=== PATIENT | female | born 1980 | race Caucasian/White ===

== ENCOUNTER → 2016-04-26 | Outpatient (CLI) | payer OTHER ==
[~2016-04-26] MED LIST: ADV250INH INH; ALBU17IN2 INH; AVIANE PO; BACT800T5 PO; LEVO200T4 PO; LUTETAB PO; NAPR500T2 PO; NAPRPOW4 PO; NORCOTAB PO; PROVENTIL INHAL INH; SERT50TA PO; SERTRALINE PO; SYNTHROID PO; VITA50003 PO; VITAMIN D PO
== END ==
LOC: EDBD → M LAB 06:07
PROVIDERS: ATTEND Family Medicine
DX: J30.2 Other seasonal allergic rhinitis (principal); J30.81 Allergic rhinitis due to animal (cat) (dog) hair and dander; H10.43 Chronic follicular conjunctivitis; R05 Cough; T50.995A Adverse effect of other drugs, medicaments and biological substances, initial encounter; E28.2 Polycystic ovarian syndrome; E55.9 Vitamin D deficiency, unspecified

== ENCOUNTER → 2016-04-26 | Outpatient (CLI) | payer OTHER ==
[2016-04-26 07:38] LABS: COMPLEMENT C4 23.7 MG/DL (10-40); IMMUNOGLOBULIN E 52.4 IU/ML (<100)
[2016-04-30 14:15] LABS: ALPHA 1 ANTITRYPSIN 157 mg/dL (90-200); D001-IgE D pteronyssinus 6.66 kU/L (Class IV); E001-IgE Cat Epith/Dander 0.12 kU/L (Class 0/I); E005-IgE Dog Dander 0.58 kU/L (Class II); F002-IgE Milk 0.38 kU/L (Class I); F004-IgE Wheat 0.14 kU/L (Class 0/I); F013-IgE Peanut < 0.10 kU/L (Class 0); F014-IgE Soybean < 0.10 kU/L (Class 0); F026-IgE Pork < 0.10 kU/L (Class 0); F027-IgE Beef < 0.10 kU/L (Class 0); FX02-IgE Food Mix (Sea Foods) Negative (.); G002-IgE Bermuda Grass < 0.10 kU/L (Class 0); G008-IgE Kentucky Bluegrass < 0.10 kU/L (Class 0); M001-IgE Penicillium chrysogen < 0.10 kU/L (Class 0); M002 IgE Cladosporium herbaru < 0.10 kU/L (Class 0); M003 IgE Aspergillus fumigatu < 0.10 kU/L (Class 0); M006-IgE Alternaria alternata < 0.10 kU/L (Class 0); T001-IgE Maple/Box Elder < 0.10 kU/L (Class 0); T003-IgE Common Silver Birch < 0.10 kU/L (Class 0); T007-IgE Oak, White < 0.10 kU/L (Class 0); T008-IgE Elm, American < 0.10 kU/L (Class 0); T015-IgE Ash, White < 0.10 kU/L (Class 0); T041-IgE Hickory, White < 0.10 kU/L (Class 0); W001-IgE Ragweed, Short < 0.10 kU/L (Class 0); W009-IgE Plantain, English < 0.10 kU/L (Class 0); W014-IgE Pigweed, Rough < 0.10 kU/L (Class 0); W018-IgE Sheep Sorrel < 0.10 kU/L (Class 0)
== END ==
LOC: M LAB 06:10 → EDBD 06:10
PROVIDERS: ATTEND Allergy & Immunology
DX: E28.2 Polycystic ovarian syndrome (principal); E55.9 Vitamin D deficiency, unspecified

== ENCOUNTER → 2016-06-19 | Outpatient (REF) | payer OTHER | LOC: M LAB REF 11:37 | PROVIDERS: ATTEND Physician Assistant | DX: J02.9 Acute pharyngitis, unspecified (principal) ==

== ENCOUNTER → 2016-07-22 | Outpatient (CLI) | payer OTHER | LOC: M RAD 10:26 | PROVIDERS: ATTEND Internal Medicine Endocrinology, Diabetes & Metabolism | DX: Z85.850 Personal history of malignant neoplasm of thyroid (principal); Z53.9 Procedure and treatment not carried out, unspecified reason ==

== ENCOUNTER → 2016-08-03 | Outpatient (CLI) | payer OTHER ==
[2016-08-03 18:09] LABS: ALBUMIN 3.2 GM/DL (3.2-5.2); ALBUMIN/GLOBULIN RATIO 0.84 (1.00-1.93); ALKALINE PHOSPHATASE 125 U/L (45-117); ALT/SGPT 21 U/L (12-78); ANION GAP 10 MEQ/L (8-16); AST/SGOT 10 U/L (15-37); BILIRUBIN,TOTAL 0.3 MG/DL (0.2-1.0); BLOOD UREA NITROGEN 13 MG/DL (7-18); CALCIUM LEVEL 8.4 MG/DL (8.5-10.1); CARBON DIOXIDE LEVEL 23 MEQ/L (21-32); CHLORIDE LEVEL 104 MEQ/L (98-107); CREATININE FOR GFR 0.68 MG/DL (0.55-1.02); GLOMERULAR FILTRATION RATE > 60.0 (>60); GLUCOSE, FASTING 87 MG/DL (70-105); POTASSIUM SERUM 3.8 MEQ/L (3.5-5.1); SODIUM LEVEL 137 MEQ/L (136-145)
== END ==
LOC: M LAB 15:30
PROVIDERS: ATTEND Family Medicine
DX: E66.01 Morbid (severe) obesity due to excess calories (principal); E55.9 Vitamin D deficiency, unspecified; R06.00 Dyspnea, unspecified

== ENCOUNTER → 2016-12-06 | Outpatient (CLI) | payer OTHER ==
[~2016-12-06] MED LIST changes: -NAPR500T2 PO; +NAPR500T3 PO; +VITA1CAP40 PO; -VITA50003 PO
[2016-12-06 09:51] LABS: CONTROL LINE HCG INT CTR LINE PRESENT
[2016-12-06 10:02] LABS: ANION GAP 10 MEQ/L (8-16); BLOOD UREA NITROGEN 10 MG/DL (7-18); CALCIUM LEVEL 8.3 MG/DL (8.5-10.1); CARBON DIOXIDE LEVEL 23 MEQ/L (21-32); CHLORIDE LEVEL 107 MEQ/L (98-107); CREATININE FOR GFR 0.72 MG/DL (0.55-1.02); GLOMERULAR FILTRATION RATE > 60.0 (>60); GLUCOSE, FASTING 97 MG/DL (70-105); MAGNESIUM LEVEL 2.2 MG/DL (1.8-2.4); PHOSPHORUS LEVEL 3.6 MG/DL (2.5-4.9); POTASSIUM SERUM 4.4 MEQ/L (3.5-5.1); SODIUM LEVEL 140 MEQ/L (136-145)
== END ==
LOC: M LAB 08:00
PROVIDERS: ATTEND Nurse Practitioner Family
DX: Z98.84 Bariatric surgery status (principal)

== ENCOUNTER → 2017-02-24 | Outpatient (CLI) | payer OTHER ==
[2017-02-24 07:27] LABS: BASO # 0.1 10^3/uL (0.0-0.2); BASO % 0.9 % (0.0-1.0); EOS # 0.4 10^3/uL (0.0-0.50); EOS % 3.3 % (0.0-3.0); HEMATOCRIT 34.1 % (36.0-47.0); HEMOGLOBIN 10.7 g/dl (12.0-16.0); IMMATURE GRANULOCYTE # 0.1 10^3/uL (0-0); IMMATURE GRANULOCYTE % 0.8 % (0-0); LYMPH # 3.8 10^3/uL (1.5-4.5); LYMPH % 30.6 % (24.0-44.0); MEAN CORPUSCULAR HEMOGLOBIN 23.9 pg (27.0-33.0); MEAN CORPUSCULAR HGB CONC 31.4 g/dl (32.0-36.5); MEAN CORPUSCULAR VOLUME 76.1 fl (80.0-96.0); MONO # 0.6 10^3/uL (0.0-0.8); NEUTROPHILS # 7.4 10^3/uL (1.8-7.7); NEUTROPHILS % 59.4 % (36.0-66.0); PLATELET COUNT, AUTOMATED 467 10^3/uL (150-450); RED BLOOD COUNT 4.48 10^6/uL (4.00-5.40); RED CELL DISTRIBUTION WIDTH 15.9 % (11.5-14.5); WHITE BLOOD COUNT 12.5 10^3/uL (4.0-10.0)
[2017-02-24 07:45] LABS: ESTIMATED AVERAGE GLUCOSE 131 MG/DL (60-110); HEMOGLOBIN A1c 6.2 %
[2017-02-24 07:59] LABS: ALBUMIN 3.2 GM/DL (3.2-5.2); ALBUMIN/GLOBULIN RATIO 0.86 (1.00-1.93); ALKALINE PHOSPHATASE 158 U/L (45-117); ALT/SGPT 24 U/L (12-78); ANION GAP 9 MEQ/L (8-16); AST/SGOT 14 U/L (7-37); BILIRUBIN,TOTAL 0.3 MG/DL (0.2-1.0); BLOOD UREA NITROGEN 12 MG/DL (7-18); CALCIUM LEVEL 8.5 MG/DL (8.5-10.1); CARBON DIOXIDE LEVEL 27 MEQ/L (21-32); CHLORIDE LEVEL 105 MEQ/L (98-107); CREATININE FOR GFR 0.65 MG/DL (0.55-1.02); FREE T4 0.71 NG/DL (0.76-1.46); GLOMERULAR FILTRATION RATE > 60.0 (>60); GLUCOSE, FASTING 88 MG/DL (70-105); POTASSIUM SERUM 4.4 MEQ/L (3.5-5.1); SODIUM LEVEL 141 MEQ/L (136-145); TOTAL PROTEIN 6.9 GM/DL (6.4-8.2)
[2017-02-24 09:16] LABS: VITAMIN B12 LEVEL 345 PG/ML (247-911)
[2017-02-24 10:07] LABS: LUTEINIZING HORMONE 2.6 mIU/mL; TESTOSTERONE 36 NG/DL (14-76)
[2017-02-24 10:08] LABS: FOLLICLE STIMULATING HORMONE 4.5 mIU/mL
== END ==
LOC: M LAB 06:27
DX: E28.2 Polycystic ovarian syndrome (principal); E89.0 Postprocedural hypothyroidism; E55.9 Vitamin D deficiency, unspecified; D51.3 Other dietary vitamin B12 deficiency anemia
CPT/HCPCS: 83001

== ENCOUNTER → 2018-03-17 | Outpatient (CLI) | payer OTHER ==
[~2018-03-17] MED LIST changes: +NAPR-885 PO; -NAPR500T3 PO; -VITA1CAP40 PO; +VITA50005 PO
[2018-03-17 16:52] LABS: BASO # 0.1 10^3/uL (0.0-0.2); BASO % 0.5 % (0.0-1.0); EOS # 0.3 10^3/uL (0.0-0.50); EOS % 1.8 % (0.0-3.0); HEMATOCRIT 35.5 % (36.0-47.0); HEMOGLOBIN 10.5 g/dl (12.0-15.5); LYMPH # 3.7 10^3/uL (1.5-4.5); LYMPH % 26.3 % (24.0-44.0); MEAN CORPUSCULAR HEMOGLOBIN 21.8 pg (27.0-33.0); MEAN CORPUSCULAR HGB CONC 29.6 g/dl (32.0-36.5); MEAN CORPUSCULAR VOLUME 73.7 fl (80.0-96.0); MONO # 0.6 10^3/uL (0.0-0.8); NEUTROPHILS # 9.5 10^3/uL (1.8-7.7); NEUTROPHILS % 66.9 % (36.0-66.0); PLATELET COUNT, AUTOMATED 495 10^3/uL (150-450); RED BLOOD COUNT 4.82 10^6/uL (4.00-5.40); WHITE BLOOD COUNT 14.2 10^3/uL (4.0-10.0)
[2018-03-17 17:33] LABS: ALT/SGPT 23 U/L (12-78); BILIRUBIN,TOTAL 0.3 MG/DL (0.2-1.0); BLOOD UREA NITROGEN 11 MG/DL (7-18); CALCIUM LEVEL 8.6 MG/DL (8.5-10.1); CARBON DIOXIDE LEVEL 26 MEQ/L (21-32); CHLORIDE LEVEL 106 MEQ/L (98-107); CREATININE FOR GFR 0.73 MG/DL (0.55-1.30); FERRITIN 4 NG/ML (8-252); FREE T4 1.46 NG/DL (0.76-1.46); GLOMERULAR FILTRATION RATE > 60.0 (>60); GLUCOSE, FASTING 122 MG/DL (70-100); IRON (FE) 32 UG/DL (50-170); MAGNESIUM LEVEL 2.1 MG/DL (1.8-2.4); PERCENT SATURATION 7.5 % (13.2-45.0); POTASSIUM SERUM 4.7 MEQ/L (3.5-5.1); SODIUM LEVEL 140 MEQ/L (136-145); TOTAL 25(OH) VITAMIN D 27.8 NG/ML (30.0-100.0); TOTAL IRON BINDING CAPACITY 424 UG/DL (250-450); TOTAL PROTEIN 7.1 GM/DL (6.4-8.2)
[2018-03-17 19:28] LABS: FOLATE 14.4 NG/ML (>5.4)
[2018-03-20 07:39] LABS: VITAMIN B12 LEVEL 273 PG/ML (232-1245)
[2018-03-20 14:49] LABS: ANTINUCLEAR ANTIBODIES DIRECT Negative (Negative)
== END ==
LOC: M LAB 16:24
PROVIDERS: ATTEND Physician Assistant
DX: F45.8 Other somatoform disorders (principal); R73.03 Prediabetes

== ENCOUNTER → 2018-03-24 | Outpatient (CLI) | payer OTHER | LOC: M LAB 14:31 | PROVIDERS: ATTEND Obstetrics & Gynecology | DX: Z15.01 Genetic susceptibility to malignant neoplasm of breast (principal) ==

== ENCOUNTER 2018-03-26 10:09 | Emergency (ER) | payer OTHER ==
[~2018-03-26] VITALS: Ht 162.6 cm; Wt 160.9 kg
[2018-03-26] MEDS ORDERED: NS 1,000 ML IV ONE (10:45)
[2018-03-26] MEDS ORDERED: MORPHINE 2 MG/ML 1ML SYRINGE (J2270) IV PRN (10:45)
[2018-03-26] MEDS ORDERED: ONDANSETRON 4MG/2ML VIAL (J2405) IV ONE (10:45)
[2018-03-26 11:13] LABS: BASO # 0.1 10^3/uL (0.0-0.2); BASO % 0.5 % (0.0-1.0); EOS # 0.2 10^3/uL (0.0-0.50); EOS % 1.4 % (0.0-3.0); HEMATOCRIT 35.8 % (36.0-47.0); HEMOGLOBIN 10.9 g/dl (12.0-15.5); LYMPH # 2.7 10^3/uL (1.5-4.5); MEAN CORPUSCULAR HEMOGLOBIN 22.3 pg (27.0-33.0); MEAN CORPUSCULAR HGB CONC 30.4 g/dl (32.0-36.5); MEAN CORPUSCULAR VOLUME 73.4 fl (80.0-96.0); MONO # 0.6 10^3/uL (0.0-0.8); MONO % 4.8 % (0.0-5.0); NEUTROPHILS # 9.3 10^3/uL (1.8-7.7); NEUTROPHILS % 71.8 % (36.0-66.0); PLATELET COUNT, AUTOMATED 491 10^3/uL (150-450); RED BLOOD COUNT 4.88 10^6/uL (4.00-5.40)
[2018-03-26] MEDS: GASTROGRAFIN SOLUTION 30ML PO SCH ×2 (11:20→11:50)
[2018-03-26 11:37] LABS: HCG, SERUM QUALITATIVE NEGATIVE (NEGATIVE)
[2018-03-26 11:42] LABS: ALBUMIN 3.1 GM/DL (3.2-5.2); ALT/SGPT 23 U/L (12-78); BILIRUBIN,DIRECT < 0.1 MG/DL (0.0-0.2); BILIRUBIN,TOTAL 0.2 MG/DL (0.2-1.0); BLOOD UREA NITROGEN 11 MG/DL (7-18); CALCIUM LEVEL 8.6 MG/DL (8.5-10.1); CARBON DIOXIDE LEVEL 26 MEQ/L (21-32); CHLORIDE LEVEL 106 MEQ/L (98-107); CREATININE FOR GFR 0.57 MG/DL (0.55-1.30); GLOMERULAR FILTRATION RATE > 60.0 (>60); GLUCOSE, FASTING 89 MG/DL (70-100); LIPASE 241 U/L (73-393); POTASSIUM SERUM 4.5 MEQ/L (3.5-5.1); SODIUM LEVEL 140 MEQ/L (136-145); TOTAL PROTEIN 7.2 GM/DL (6.4-8.2)
[2018-03-26] MEDS ORDERED: ISOVUE-370 76% 100ML VIAL (Q9967) As Ordered ONE (12:38)
--- NOTE | 2018-03-26 13:24 | REP ---
Clinical: Left lower quadrant pain. Technique: Axial contrast enhanced images from the lung bases to the pubic symphysis using oral and 100 ml Isovue 70 intravenous contrast material with coronal and sagittal re-formations. Comparison: 10/22/2013. Findings: Lung bases are clear. Visualized heart and pericardium normal. Evidence for prior gastric bypass surgery. Liver, spleen, pancreas, gallbladder, bilateral adrenal glands and kidneys are normal. The small and large bowel is without obstruction or acute inflammatory process. Pelvis demonstrates normal bladder and grossly unremarkable uterus/adnexa. No pelvic fluid/ascites. No free air. Abdominal aorta and vasculature without aneurysm or dissection. Evidence for prior ventral hernia repair. Musculoskeletal structures demonstrate age-related changes without focal osseous abnormality. Mildly prominent lymph nodes are identified throughout the mesentery and pelvis including bilateral inguinal nodes. There also appears to be a small 2 cm enhancing lesion along the right anterior border of the bladder (image 138) which may also represent lymph node. These findings are essentially stable compared to 2013 and of uncertain clinical significance. Impression: 1. No obvious acute abdominopelvic pathology appreciated. 2. Nonacute findings as described above relatively similar/stable compared to 2013. Electronically Signed by Sachin Alford MD 03/26/2018 01:16 P
--- NOTE | 2018-03-26 14:46 | REP ---
Clinical: Left lower quadrant pain . Technique: Transabdominal pelvic ultrasound followed by transvaginal examination for better evaluation of the endometrium and adnexa with color Doppler evaluation of the ovaries. Findings: Bladder is unremarkable and measures 7.3 x 4.1 x 5.7 cm . Normal anteverted uterus measures 7.7 x 3.1 x 4.7 cm . The endometrial complex measures 4.6 mm thickness. No discrete uterine or endometrial abnormalities are appreciated. Bilateral ovaries are normal in appearance and vascularity without evidence for torsion. Right ovary measures 3.1 x 2.9 x 2.5 cm with 2.3 x 2.2 x 2.4 cm physiologic cyst ; R I = 0.46 . Left ovary measures 3.2 x 1.7 x 2.3 cm ; R I = 0.62 . No pelvic fluid or adnexal mass lesion . Impression: 1. 2.4 cm physiologic cyst in the right ovary. No evidence for torsion bilaterally. Normal uterus. Electronically Signed by Sachin Alford MD 03/26/2018 02:37 P
[2018-03-26 14:57] VITALS: BP 138/78
== END 2018-03-26 15:02 | disposition home or self-care (01) ==
LOC: M ED 10:09
DX: R10.32 Left lower quadrant pain (principal); N83.201 Unspecified ovarian cyst, right side; E78.5 Hyperlipidemia, unspecified; E03.9 Hypothyroidism, unspecified; J45.909 Unspecified asthma, uncomplicated; Z98.84 Bariatric surgery status; Z79.899 Other long term (current) drug therapy
CPT/HCPCS: 74177; 76830; 76856; 80048; 80076; 81001; 83605; 83690; 84703; 85025; 87086; 93976; 96361; 96374; 99284; J2405; Q9963; Q9967

== ENCOUNTER → 2018-03-27 | Outpatient (REF) | payer OTHER | LOC: M LAB REF 16:51 | PROVIDERS: ATTEND Family Medicine | DX: R10.32 Left lower quadrant pain (principal) ==

== ENCOUNTER → 2018-05-02 | Outpatient (REF) | payer OTHER ==
[2018-05-05 00:10] LABS: HPV HYBRID CAPTURE II Negative (Negative)
== END ==
LOC: M LAB REF 19:53
PROVIDERS: ATTEND Obstetrics & Gynecology
DX: Z12.4 Encounter for screening for malignant neoplasm of cervix (principal); R87.615 Unsatisfactory cytologic smear of cervix
CPT/HCPCS: 87624; G0123

== ENCOUNTER 2018-06-19 14:45 | Outpatient (RCR) | payer OTHER ==
[~2018-06-19 14:45] MED LIST changes: +HYDR-3715 PO; -NORCOTAB PO; +SERT-141 PO; -SERT50TA PO
== END 2018-06-20 ==
LOC: M PT 14:45
PROVIDERS: ATTEND Physician Assistant Medical
DX: Q07.00 Arnold-Chiari syndrome without spina bifida or hydrocephalus (principal); M47.812 Spondylosis without myelopathy or radiculopathy, cervical region; M43.6 Torticollis

== ENCOUNTER → 2018-07-05 | Outpatient (CLI) | payer OTHER ==
--- NOTE | 2018-07-05 15:43 | REP ---
MR BRAIN WITHOUT CONTRAST: HISTORY: Cerebellar tonsillar ectopia. The patient is status post suboccipital craniectomy for cerebellar tonsillar ectopia. There are no areas of abnormal signal intensity in the brain. There is no intraparenchymal hemorrhage, infarct, mass or midline shift. The ventricular system is normal in appearance. There is no extracerebral collection. The sinuses are clear. IMPRESSION: 1. The patient is status post suboccipital craniectomy for cerebellar tonsillar ectopia. 2. There is no intracranial lesion. Electronically Signed by Rickey Vila MD 07/05/2018 03:46 P
== END ==
LOC: M RAD 14:21
PROVIDERS: ATTEND Neurological Surgery
DX: Z87.798 Personal history of other (corrected) congenital malformations (principal)

== ENCOUNTER 2018-07-11 07:29 | Outpatient (RCR) | payer OTHER | END 2018-07-21 | LOC: M PT 07:29 | PROVIDERS: ATTEND Physician Assistant Medical | DX: Q07.00 Arnold-Chiari syndrome without spina bifida or hydrocephalus (principal); M47.812 Spondylosis without myelopathy or radiculopathy, cervical region; M43.6 Torticollis ==

== ENCOUNTER → 2018-09-27 | Outpatient (CLI) | payer OTHER ==
[2018-09-27 07:23] LABS: BASO # 0.1 10^3/uL (0.0-0.2); BASO % 0.9 % (0.0-1.0); EOS # 0.3 10^3/uL (0.0-0.50); EOS % 2.6 % (0.0-3.0); HEMATOCRIT 32.6 % (36.0-47.0); HEMOGLOBIN 9.8 g/dl (12.0-15.5); LYMPH # 2.8 10^3/uL (1.5-4.5); LYMPH % 23.8 % (24.0-44.0); MEAN CORPUSCULAR HEMOGLOBIN 22.1 pg (27.0-33.0); MEAN CORPUSCULAR HGB CONC 30.1 g/dl (32.0-36.5); MEAN CORPUSCULAR VOLUME 73.6 fl (80.0-96.0); MONO # 0.6 10^3/uL (0.0-0.8); MONO % 5.2 % (0.0-5.0); NEUTROPHILS # 7.8 10^3/uL (1.8-7.7); PLATELET COUNT, AUTOMATED 473 10^3/uL (150-450); RED BLOOD COUNT 4.43 10^6/uL (4.00-5.40); WHITE BLOOD COUNT 11.7 10^3/uL (4.0-10.0)
[2018-09-27 07:48] LABS: ALBUMIN 3.1 GM/DL (3.2-5.2); ALT/SGPT 25 U/L (12-78); BILIRUBIN,TOTAL 0.3 MG/DL (0.2-1.0); BLOOD UREA NITROGEN 12 MG/DL (7-18); CALCIUM LEVEL 8.4 MG/DL (8.5-10.1); CARBON DIOXIDE LEVEL 24 MEQ/L (21-32); CHLORIDE LEVEL 107 MEQ/L (98-107); CREATININE FOR GFR 0.64 MG/DL (0.55-1.30); FERRITIN 5 NG/ML (8-252); FREE T4 1.22 NG/DL (0.76-1.46); GLOMERULAR FILTRATION RATE > 60.0 (>60); GLUCOSE, FASTING 91 MG/DL (70-100); IRON (FE) 24 UG/DL (50-170); PERCENT SATURATION 6.1 % (13.2-45.0); POTASSIUM SERUM 4.5 MEQ/L (3.5-5.1); SODIUM LEVEL 138 MEQ/L (136-145); TOTAL IRON BINDING CAPACITY 394 UG/DL (250-450); TOTAL PROTEIN 6.9 GM/DL (6.4-8.2)
== END ==
LOC: M LAB 06:05
PROVIDERS: ATTEND Physician Assistant
DX: R73.03 Prediabetes (principal); D50.9 Iron deficiency anemia, unspecified; E89.0 Postprocedural hypothyroidism

== ENCOUNTER → 2018-11-03 | Outpatient (CLI) | payer OTHER ==
[2018-11-03 07:18] LABS: BASO # 0.1 10^3/uL (0.0-0.2); BASO % 0.5 % (0.0-1.0); EOS # 0.3 10^3/uL (0.0-0.5); EOS % 2.2 % (0.0-3.0); HEMATOCRIT 36.5 % (36.0-47.0); LYMPH # 3.1 10^3/uL (1.5-5.0); LYMPH % 24.6 % (24.0-44.0); MEAN CORPUSCULAR HGB CONC 30.1 g/dl (32.0-36.5); MEAN CORPUSCULAR VOLUME 76.2 fl (80.0-96.0); MONO # 0.8 10^3/uL (0.0-0.8); MONO % 6.1 % (0.0-5.0); NEUTROPHILS # 8.4 10^3/uL (1.5-8.5); NEUTROPHILS % 66.1 % (36.0-66.0); PLATELET COUNT, AUTOMATED 473 10^3/uL (150-450); RED BLOOD COUNT 4.79 10^6/uL (4.00-5.40); WHITE BLOOD COUNT 12.7 10^3/uL (4.0-10.0)
[2018-11-03 08:00] LABS: HEMOGLOBIN A1c 5.7 %
[2018-11-03 10:35] LABS: CHLAMYDIA DNA AMPLIFICATION NEGATIVE (NEGATIVE); GC DNA AMPLIFICATION NEGATIVE (NEGATIVE)
[2018-11-03 10:51] LABS: HEPATITIS C VIRUS ABY INDEX 0.1 INDEX (<0.8); HIV 1&2 SCREEN CENTAUR NEGATIVE (NEGATIVE); RUBELLA IgG QUALITATIVE IMMUNE (IMMUNE)
== END ==
LOC: M LAB 06:10
PROVIDERS: ATTEND Obstetrics & Gynecology
DX: Z34.81 Encounter for supervision of other normal pregnancy, first trimester (principal); Z3A.00 Weeks of gestation of pregnancy not specified

== ENCOUNTER → 2018-11-14 | Outpatient (CLI) | payer OTHER | LOC: M LAB 09:02 | PROVIDERS: ATTEND Advanced Practice Midwife | DX: O99.211 Obesity complicating pregnancy, first trimester (principal) ==

== ENCOUNTER → 2018-12-13 | Outpatient (CLI) | payer OTHER ==
[2018-12-13 09:26] LABS: HEMATOCRIT 34.2 % (36.0-47.0); HEMOGLOBIN 10.6 g/dl (12.0-15.5); MEAN CORPUSCULAR VOLUME 77.4 fl (80.0-96.0); PLATELET COUNT, AUTOMATED 404 10^3/uL (150-450); RED BLOOD COUNT 4.42 10^6/uL (4.00-5.40); WHITE BLOOD COUNT 12.5 10^3/uL (4.0-10.0)
[2018-12-13 09:50] LABS: ALBUMIN 2.7 GM/DL (3.2-5.2); ALT/SGPT 21 U/L (12-78); BILIRUBIN,TOTAL 0.2 MG/DL (0.2-1.0); BLOOD UREA NITROGEN 7 MG/DL (7-18); CALCIUM LEVEL 9.1 MG/DL (8.5-10.1); CARBON DIOXIDE LEVEL 25 MEQ/L (21-32); CHLORIDE LEVEL 106 MEQ/L (98-107); CREATININE FOR GFR 0.54 MG/DL (0.55-1.30); FERRITIN 4 NG/ML (8-252); FREE T4 0.45 NG/DL (0.76-1.46); GLOMERULAR FILTRATION RATE > 60.0 (>60); GLUCOSE, FASTING 94 MG/DL (70-100); IRON (FE) 35 UG/DL (50-170); PERCENT SATURATION 8.1 % (13.2-45.0); POTASSIUM SERUM 4.1 MEQ/L (3.5-5.1); SODIUM LEVEL 138 MEQ/L (136-145); TOTAL IRON BINDING CAPACITY 432 UG/DL (250-450); TOTAL PROTEIN 6.9 GM/DL (6.4-8.2)
[2018-12-13 10:05] LABS: TOTAL 25(OH) VITAMIN D 32.4 NG/ML (30.0-100.0)
[2018-12-13 10:06] LABS: VITAMIN B12 LEVEL 175 PG/ML
[2018-12-13 10:07] LABS: FOLATE > 24.0 NG/ML
== END ==
LOC: M LAB 08:52
PROVIDERS: ATTEND Advanced Practice Midwife
DX: O99.212 Obesity complicating pregnancy, second trimester (principal); Z3A.00 Weeks of gestation of pregnancy not specified

== ENCOUNTER → 2018-12-13 | Outpatient (REF) | payer OTHER | LOC: M LAB REF 13:30 | PROVIDERS: ATTEND Advanced Practice Midwife | DX: O99.212 Obesity complicating pregnancy, second trimester (principal); Z3A.00 Weeks of gestation of pregnancy not specified ==

== ENCOUNTER → 2019-01-03 | Outpatient (CLI) | payer OTHER ==
[2019-01-03 06:57] LABS: HEMATOCRIT 34.3 % (36.0-47.0); HEMOGLOBIN 10.8 g/dl (12.0-15.5)
[2019-01-03 07:33] LABS: FERRITIN 5 NG/ML (8-252); IRON (FE) 68 UG/DL (50-170); NT-PRO BNP 46 PG/ML (<125)
[2019-01-03 10:03] LABS: FOLATE > 24.0 NG/ML; VITAMIN B12 LEVEL 171 PG/ML
== END ==
LOC: M LAB 06:21
PROVIDERS: ATTEND Internal Medicine Cardiovascular Disease
DX: R06.02 Shortness of breath (principal)

== ENCOUNTER → 2019-01-05 | Outpatient (CLI) | payer OTHER ==
--- NOTE | 2019-01-05 08:34 | REP ---
Clinical: Anatomical evaluation. Comparison: None . Findings: Examination demonstrates a single live intrauterine in variable presentation. motion is identified by technologist. Placenta is noted posterior and grade zero without evidence for placenta previa or abruption. Amniotic fluid volume is normal. Cervix measures 3.2 cm in length and appears closed. No evidence for nuchal cord. Gestational age by LMP 20 weeks 4 days with BOSSMAN 05/21/2019 . Gestational age by current measurements 19 weeks 0 days with BOSSMAN 06/01/2019 . FHR equals 138 beats per minute. BPD 4.4 cm 19 weeks 1 day HC 16.0 cm 18 weeks 6 days AC 13.6 cm 19 weeks 0 days FL 3.0 cm 19 weeks 1 day HL 2.7 cm 18 weeks 5 days HC/AC ratio 1.18 Estimated weight eight 273 grams ( 50th percentile). Anatomical assessment demonstrates normal structures including cranium, choroid plexus, cavum, cerebellum/posterior fossa, facial features, diaphragm, stomach, cord insertion/three-vessel cord, kidneys, spine, and extremities. Limited evaluation of the lungs, four-chamber heart, ventricular outflow tracts and bladder due to positioning and maternal body habitus Impression: 1. Single live intrauterine in variable presentation demonstrating appropriate estimated weight. 2. Anatomical limitations as noted above. Electronically Signed by Sachin Alford MD 01/05/2019 08:25 A
== END ==
LOC: M RAD 06:57
PROVIDERS: ATTEND Advanced Practice Midwife
DX: O99.212 Obesity complicating pregnancy, second trimester (principal)

== ENCOUNTER → 2019-01-22 | Outpatient (CLI) | payer OTHER ==
--- NOTE | 2019-01-22 08:33 | REP ---
Clinical: Anatomical evaluation. Comparison: 01/05/2019 . Findings: Examination demonstrates a single live intrauterine in each presentation. motion is identified by technologist. Placenta is noted posterior and grade I without evidence for placenta previa or abruption. Amniotic fluid volume is normal. Cervix measures 5.9 cm in length and appears closed. No evidence for nuchal cord. Gestational age by LMP 20 weeks 6 days with BOSSMAN 06/05/2019 . Gestational age by current measurements 21 weeks 4 days with BOSSMAN 05/31/2019 . FHR equals 144 beats per minute. Estimated weight 440 grams ( 73rd percentile). Anatomical assessment demonstrates normal structures including cranium, choroid plexus, cavum, cerebellum/posterior fossa, facial features, lungs, diaphragm, stomach, cord insertion/three-vessel cord, kidneys/bladder, and extremities. Impression: 1. Single live intrauterine in breech presentation demonstrating appropriate interval growth. 2. Continued limited evaluation of the heart/ventricular outflow tracts and spine due to positioning and maternal body habitus. Electronically Signed by Sachin Alford MD 01/22/2019 08:24 A
== END ==
LOC: M RAD 07:04
PROVIDERS: ATTEND Obstetrics & Gynecology
DX: O99.212 Obesity complicating pregnancy, second trimester (principal)

== ENCOUNTER → 2019-01-24 | Outpatient (CLI) | payer OTHER ==
[2019-01-24 07:00] LABS: BASO % 0.3 % (0.0-1.0); EOS # 0.2 10^3/uL (0.0-0.5); EOS % 1.8 % (0.0-3.0); HEMATOCRIT 34.5 % (36.0-47.0); HEMOGLOBIN 10.7 g/dl (12.0-15.5); LYMPH # 2.1 10^3/uL (1.5-5.0); LYMPH % 16.8 % (24.0-44.0); MEAN CORPUSCULAR VOLUME 80.6 fl (80.0-96.0); MONO # 0.8 10^3/uL (0.0-0.8); MONO % 6.2 % (0.0-5.0); NEUTROPHILS # 9.2 10^3/uL (1.5-8.5); NEUTROPHILS % 74.1 % (36.0-66.0); PLATELET COUNT, AUTOMATED 342 10^3/uL (150-450); RED BLOOD COUNT 4.28 10^6/uL (4.00-5.40); WHITE BLOOD COUNT 12.4 10^3/uL (4.0-10.0)
[2019-01-24 07:36] LABS: ALBUMIN 2.5 GM/DL (3.2-5.2); ALT/SGPT 38 U/L (12-78); BILIRUBIN,TOTAL 0.2 MG/DL (0.2-1.0); BLOOD UREA NITROGEN 6 MG/DL (7-18); CALCIUM LEVEL 8.4 MG/DL (8.5-10.1); CARBON DIOXIDE LEVEL 22 MEQ/L (21-32); CHLORIDE LEVEL 109 MEQ/L (98-107); CREATININE FOR GFR 0.47 MG/DL (0.55-1.30); FERRITIN 5 NG/ML (8-252); FREE T4 1.48 NG/DL (0.76-1.46); GLOMERULAR FILTRATION RATE > 60.0 (>60); GLUCOSE, FASTING 91 MG/DL (70-100); IRON (FE) 36 UG/DL (50-170); PERCENT SATURATION 8.8 % (13.2-45.0); POTASSIUM SERUM 4.1 MEQ/L (3.5-5.1); SODIUM LEVEL 139 MEQ/L (136-145); THYROID STIMULATING HORMONE 0.243 uIU/ML (0.358-3.740); TOTAL IRON BINDING CAPACITY 410 UG/DL (250-450); TOTAL PROTEIN 6.3 GM/DL (6.4-8.2)
== END ==
LOC: M LAB 06:23
PROVIDERS: ATTEND Physician Assistant
DX: E03.9 Hypothyroidism, unspecified (principal)

== ENCOUNTER → 2019-01-29 | Outpatient (CLI) | payer OTHER ==
--- NOTE | 2019-01-30 19:01 | SLEEPHOME ---
DATE OF PROCEDURE: 01/29/2019 ORDERED BY: Dr. Jean Diagnostic home sleep testing was performed due to concern for the obstructive sleep apnea syndrome in this patient with a prior history of the same. For testing a nocturnal T3 respiratory monitoring device was used. Continuous record was made of pulse, oxygen saturation airflow, chest, abdominal strain and body position. 9 hours and 59 minutes of data were reviewed. There were 4 hours and 55 minutes marked time in bed. During the interval marked time in bed there were 60 respiratory events identified of 10 seconds in duration or greater for a respiratory event index of 12.2 events were obstructive. Baseline pulse rate 83, pulse rate ranged 69 105. Baseline saturation 95% saturations fell to 74%. Testing was performed in both the supine and nonsupine positions. IMPRESSION: Abnormal home sleep testing with repetitive respiratory events and oxygen desaturations to 74% with a respiratory event index of 12.2 is consistent with the obstructive sleep apnea syndrome. RECOMMENDATIONS: The patient should be encouraged to undergo formal sleep evaluation.
== END ==
LOC: M SLEEP HO 12:08
PROVIDERS: ATTEND Internal Medicine Pulmonary Disease
DX: G47.33 Obstructive sleep apnea (adult) (pediatric) (principal)

== ENCOUNTER → 2019-02-20 | Outpatient (REF) | payer OTHER | LOC: M SFHCLERA 13:35 | PROVIDERS: ATTEND Physician Assistant | DX: M54.5 Low back pain (principal) ==

== ENCOUNTER → 2019-02-22 | Outpatient (CLI) | payer OTHER ==
--- NOTE | 2019-02-22 13:51 | REP ---
Clinical: Anatomical evaluation. Comparison: 01/22/2019 . Findings: Examination demonstrates a single live intrauterine in cephalic presentation. motion is identified by technologist. Placenta is noted posterior and grade zero without evidence for placenta previa or abruption. Amniotic fluid volume is normal. Cervix measures no 5.1 cm in length and appears closed. No evidence for nuchal cord. Gestational age by LMP 25 weeks 2 days with BOSSMAN 06/05/2019 . Gestational age by current measurements 26 weeks 2 days with BOSSMAN 05/29/2019 . FHR equals 149 beats per minute. Estimated weight 860 grams ( 58th percentile). Anatomical assessment demonstrates normal structures including cranium, choroid plexus, cavum, cerebellum/posterior fossa, facial features, lungs, four-chamber heart/ventricular outflow tracts, diaphragm, stomach, cord insertion/three-vessel cord, kidneys/bladder, spine, and extremities. Impression: 1. Single live intrauterine in cephalic presentation demonstrating appropriate interval growth. 2. Anatomical assessment is complete and essentially normal. Echogenic focus within the left cardiac ventricle again noted and likely prominent chordae tendineae. Electronically Signed by Sachin Alford MD 02/22/2019 01:43 P
== END ==
LOC: M RAD 12:43
PROVIDERS: ATTEND Obstetrics & Gynecology
DX: O99.840 Bariatric surgery status complicating pregnancy, unspecified trimester (principal)

== ENCOUNTER → 2019-03-07 | Outpatient (CLI) | payer OTHER ==
[2019-03-07 06:33] LABS: HEMOGLOBIN 10.5 g/dl (12.0-15.5); MEAN CORPUSCULAR HEMOGLOBIN 25.3 pg (27.0-33.0); MEAN CORPUSCULAR HGB CONC 30.9 g/dl (32.0-36.5); MEAN CORPUSCULAR VOLUME 81.9 fl (80.0-96.0); PLATELET COUNT, AUTOMATED 358 10^3/uL (150-450); RED BLOOD COUNT 4.15 10^6/uL (4.00-5.40); WHITE BLOOD COUNT 14.1 10^3/uL (4.0-10.0)
[2019-03-07 06:55] LABS: HEMOGLOBIN A1c 5.6 %
[2019-03-07 07:03] LABS: ALBUMIN 2.3 GM/DL (3.2-5.2); ALT/SGPT 32 U/L (12-78); BILIRUBIN,TOTAL 0.3 MG/DL (0.2-1.0); BLOOD UREA NITROGEN 7 MG/DL (7-18); CALCIUM LEVEL 8.2 MG/DL (8.5-10.1); CARBON DIOXIDE LEVEL 19 MEQ/L (21-32); CHLORIDE LEVEL 110 MEQ/L (98-107); CREATININE FOR GFR 0.44 MG/DL (0.55-1.30); GLOMERULAR FILTRATION RATE > 60.0 (>60); GLUCOSE, FASTING 83 MG/DL (70-100); IRON (FE) 38 UG/DL (50-170); PERCENT SATURATION 9.7 % (13.2-45.0); POTASSIUM SERUM 4.1 MEQ/L (3.5-5.1); SODIUM LEVEL 140 MEQ/L (136-145); TOTAL IRON BINDING CAPACITY 391 UG/DL (250-450); TOTAL PROTEIN 6.1 GM/DL (6.4-8.2)
[2019-03-07 11:56] LABS: TOTAL 25(OH) VITAMIN D 35.5 NG/ML (30.0-100.0)
[2019-03-07 11:57] LABS: FOLATE 23.2 NG/ML; VITAMIN B12 LEVEL 215 PG/ML
== END ==
LOC: M LAB 06:03
PROVIDERS: ATTEND Obstetrics & Gynecology
DX: O99.212 Obesity complicating pregnancy, second trimester (principal)

== ENCOUNTER → 2019-04-08 | Outpatient (REF) | payer OTHER | LOC: M SFHCLERA 10:13 | PROVIDERS: ATTEND Physician Assistant | DX: J02.9 Acute pharyngitis, unspecified (principal) ==

== ENCOUNTER → 2019-04-24 | Outpatient (CLI) | payer OTHER ==
--- NOTE | 2019-04-24 10:39 | REP ---
Obstetric sonography: History: Supervision of growth study . Comparison study February 22, 2019. Sonographic findings: Scanning through the gravid uterus demonstrates a viable single intrauterine gestation in a cephalic lie. motion is observed and heart rate is recorded at 155 beats per minute. A posterior grade 2 placenta is seen without evidence of previa or abruption. Amniotic fluid is subjectively normal. Closed cervical length is 4.0 cm, measured transabdominally. No extrauterine abnormalities observed. There has been appropriate interval growth. Biometry chart: BPD 8.9 cm = 36 weeks 0 days Head circumference 32.4 cm = 36 weeks 5 days Abdominal circumference 32.7 cm = 36 weeks 4 days Femur length 6.8 cm = 35 weeks 0 days Humeral length 5.9 cm = 33 weeks 6 days HC/AC ratio normal 0.99. Cephalic index normal 0.77. Estimated weight 2857 grams, 6 pounds 4 ounces, 60th percentile for 35 weeks 4 days. SILVIA 17.1 cm (7.8-24.9 cm). Impression: Viable single intrauterine gestation at the 35 weeks 4 days by today's composite sonographic criteria. BOSSMAN by today's sonography May 25, 2019. BOSSMAN by prior sonography June 05, 2019. Estimated weight 60th percentile.
== END ==
LOC: M WHC 08:35
PROVIDERS: ATTEND Obstetrics & Gynecology
DX: O99.213 Obesity complicating pregnancy, third trimester (principal)

== ENCOUNTER → 2019-05-10 | Outpatient (REF) | payer OTHER | LOC: M SFHCWAGY 10:12 | PROVIDERS: ATTEND Obstetrics & Gynecology | DX: Z34.83 Encounter for supervision of other normal pregnancy, third trimester (principal); Z3A.36 36 weeks gestation of pregnancy ==

== ENCOUNTER → 2019-05-22 | Outpatient (CLI) | payer OTHER ==
[~2019-05-22] MED LIST changes: +ASPI81TA85 PO; +PRENTAB55 PO; +PROV108A INH; +VITAD1000T PO
--- NOTE | 2019-05-22 17:16 | ECGEPIP ---
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
== END ==
LOC: M EKG 10:17
PROVIDERS: ATTEND Anesthesiology
DX: Z01.818 Encounter for other preprocedural examination (principal)

== ENCOUNTER 2019-05-25 10:11 | Outpatient (CLI) | payer OTHER ==
[~2019-05-25] VITALS: Ht 162.6 cm; Wt 172.5 kg
[2019-05-25 10:38] VITALS: BP 127/76
[2019-05-25 11:19] LABS: HEMOGLOBIN 11.5 g/dl (12.0-15.5); MEAN CORPUSCULAR HEMOGLOBIN 26.3 pg (27.0-33.0); MEAN CORPUSCULAR HGB CONC 32.9 g/dl (32.0-36.5); MEAN CORPUSCULAR VOLUME 79.9 fl (80.0-96.0); PLATELET COUNT, AUTOMATED 429 10^3/uL (150-450); RED BLOOD COUNT 4.38 10^6/uL (4.00-5.40); WHITE BLOOD COUNT 13.2 10^3/uL (4.0-10.0)
[2019-05-25 11:32] VITALS: BP 130/72
[2019-05-25 11:53] LABS: ALBUMIN 2.1 GM/DL (3.2-5.2); ALT/SGPT 28 U/L (12-78); AMYLASE 40 U/L (25-115); BILIRUBIN,TOTAL 0.5 MG/DL (0.2-1.0); BLOOD UREA NITROGEN 10 MG/DL (7-18); CALCIUM LEVEL 8.3 MG/DL (8.5-10.1); CARBON DIOXIDE LEVEL 20 MEQ/L (21-32); CHLORIDE LEVEL 109 MEQ/L (98-107); CREATININE FOR GFR 0.59 MG/DL (0.55-1.30); GLOMERULAR FILTRATION RATE > 60.0 (>60); GLUCOSE, FASTING 80 MG/DL (70-100); LDH LACTATE DEHYDROGENASE 132 U/L (84-246); LIPASE 133 U/L (73-393); POTASSIUM SERUM 4.2 MEQ/L (3.5-5.1); SODIUM LEVEL 137 MEQ/L (136-145); TOTAL PROTEIN 6.2 GM/DL (6.4-8.2); TROPONIN I < 0.02 NG/ML (< 0.10); URIC ACID 5.7 MG/DL (2.6-6.0)
[2019-05-25 12:01] LABS: TOTAL PROTEIN,RANDOM URINE 237.4 MG/DL (0.0-12.0)
[2019-05-25 12:13] VITALS: BP 127/61
[2019-05-25 13:16] VITALS: BP 125/75
--- NOTE | 2019-05-25 13:50 | IPNPDOC ---
Text Note Date of Service The patient was seen on 05/25/19. NOTE Outpatient 38yo G1 BOSSMAN 06/05/2019. Presents @ 38w3d with complaints of chest pain upon awakening this am accompanied by increased peripheral edema. Pt reports she has had blurred vision lately. has been complicated by morbid obesity, severe gestational edema, AMA, Arnold Chiari, post thyroid CA with thyroidectomy. Pt is scheduled fo primary next week. NAD, respirations easy. Able to talk VSS, normotensive. O2Sat 98% Cat I tracing. Generalized peripheral edema, nonpitting EKG essentially unchanged from 05/21. Labs - CBC 13.3>11.5/35.0<429 AST/ALT Uric Acid 5.7 Amylase 40, lipase 133 Troponin <0.02 Urine protein/creatinine ratio elevated 0.[address] Carr informed of results and patient status. Discharged to home. Pt instructed to make appt with Lilly for or Tue next week. Warnings reviewed. VS,Fishbone, I+O VS, Fishbone, I+O Laboratory Tests 05/25/19 11:00 Vital Signs Date Time Temp Pulse Resp B/P (MAP) Pulse Ox O2 Delivery O2 Flow Rate FiO2 05/25/19 13:16 68 125/75 (92) 05/25/19 13:16 19 05/25/19 10:38 98.3 97 Room Air Natalia Villanueva CNM May 25, 2019 13:50
[2019-05-25 13:55] VITALS: BP 123/68
--- NOTE | 2019-05-25 14:00 | REP ---
RIGHT UPPER QUADRANT ULTRASOUND: Real-time sonographic evaluation of the right upper quadrant performed. Gallstones are seen in the gallbladder which are mobile. There is no gallbladder wall thickening or pericholecystic fluid. There is no intrahepatic or extrahepatic biliary dilatation, common bile duct measuring 5 mm. Liver demonstrates no evidence of mass. Pancreas could not be seen due to overlying bowel gas. Right kidney demonstrates no hydronephrosis with normal size 12.5 cm in length. IMPRESSION: Multiple mobile gallstones in the gallbladder without evidence of gallbladder wall thickening, pericholecystic fluid or biliary dilatation. Electronically Signed by Chandler Abbott MD 05/25/2019 02:27 P
--- NOTE | 2019-05-28 07:24 | ECGEPIP ---
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
== END 2019-05-25 14:00 | disposition home or self-care (01) ==
LOC: M LDO 10:11
PROVIDERS: ATTEND Advanced Practice Midwife
DX: O26.893 Other specified pregnancy related conditions, third trimester (principal); R07.9 Chest pain, unspecified; R60.0 Localized edema; O99.213 Obesity complicating pregnancy, third trimester; E66.9 Obesity, unspecified; O09.523 Supervision of elderly multigravida, third trimester; Z90.89 Acquired absence of other organs; Z85.850 Personal history of malignant neoplasm of thyroid; Z3A.38 38 weeks gestation of pregnancy
CPT/HCPCS: 36415; 59025; 76705; 80053; 82150; 82247; 82565; 82570; 83615; 83690; 84156; 84450; 84460; 84484; 84550; 85027; 93005; G0378; G0463

== ENCOUNTER 2019-05-31 05:52 | Inpatient (IN) | payer OTHER ==
[~2019-05-31] VITALS: Ht 162.6 cm; Wt 173.8 kg
[2019-05-31] VITALS (8 sets, daily range): BP systolic 120–141; BP diastolic 61–83
[2019-05-31] MEDS: LEVOTHYROXINE 100MCG TABLET (0.1MG) PO SCH (06:00)
[2019-05-31] MEDS: LEVOTHYROXINE 75MCG TABLET (0.075MG) PO SCH (06:00)
[2019-05-31] MEDS ORDERED: LR 1,000 ML IV SCH ×2 (06:45→10:25)
[2019-05-31] MEDS ORDERED: ceFAZolin SOD 1 GM in D5W MINI-BAG PLUS 50 ML IV ONE (06:45)
[2019-05-31] MEDS ORDERED: BICITRA 30ML SOLN UDC PO ONE (06:45)
[2019-05-31] MEDS ORDERED: LR 1,000 ML IV ONE (06:45)
[2019-05-31] MEDS ORDERED: ceFAZolin SOD 2 GM in IV 1 EA IV ONE (06:45)
[2019-05-31 06:48] LABS: HEMATOCRIT 35.9 % (36.0-47.0); HEMOGLOBIN 11.7 g/dl (12.0-15.5); MEAN CORPUSCULAR HEMOGLOBIN 26.1 pg (27.0-33.0); MEAN CORPUSCULAR HGB CONC 32.6 g/dl (32.0-36.5); PLATELET COUNT, AUTOMATED 440 10^3/uL (150-450); RED BLOOD COUNT 4.49 10^6/uL (4.00-5.40); WHITE BLOOD COUNT 13.5 10^3/uL (4.0-10.0)
[2019-05-31] MEDS ORDERED: diphenhydrAMINE 50MG/ML VIAL (J1200) IV PRN (08:53)
[2019-05-31] MEDS ORDERED: NALOXONE INJ 0.4MG/1ML VIAL (J2310 PER 1MG) IV PRN ×2 (08:53)
[2019-05-31] MEDS ORDERED: ONDANSETRON 4MG/2ML VIAL (J2405 PER 1MG) IV PRN ×3 (08:53→11:00)
[2019-05-31] MEDS ORDERED: NALBUPHINE HCL 10 MG/ML AMP (J2300) IV PRN ×2 (08:53→11:00)
[2019-05-31] MEDS ORDERED: METOCLOPRAMIDE INJ 10MG/2ML VIAL (J2765 PER 1) IV PRN (08:53)
[2019-05-31] MEDS ORDERED: GLYCOPYRROLATE INJ 0.2 MG/ML 2 ML VIAL As Ordered ONE (08:58)
[2019-05-31] MEDS: DOCUSATE SODIUM 100 MG CAP PO SCH ×2 (09:00→19:41)
[2019-05-31] MEDS: SERTRALINE 100 MG TAB PO SCH (09:00)
[2019-05-31] MEDS: ADVAIR HFA 115/21MCG INHALER INH SCH (09:00)
[2019-05-31] MEDS: PRENATAL VITAMINS CHEWABLE TABLET PO SCH (09:00)
[2019-05-31] MEDS ORDERED: MORPHINE PRES-FREE INJ 10 MG/10 ML VIAL (J2274) As Ordered ONE (09:08)
[2019-05-31] MEDS ORDERED: OXYTOCIN INJ 10 UNITS/ML VIAL (J2590) As Ordered ONE (09:08)
[2019-05-31] MEDS ORDERED: OXYTOCIN DRIP 30 UNITS in IV 1 EA IV SCH (10:25)
[2019-05-31] MEDS ORDERED: ONDANSETRON 4 MG TAB (S0181) PO PRN (10:30)
[2019-05-31] MEDS ORDERED: RHOGAM 300 MCG (1500 IU) INJ (J2790) IM SCH (10:30)
[2019-05-31] MEDS ORDERED: MEASLES,MUMPS,RUBELLA VACCINE INJ (MMR-II) (90707) SC SCH (10:30)
[2019-05-31] MEDS ORDERED: ACETAMINOPHEN 500 MG TAB PO PRN (10:30)
[2019-05-31] MEDS ORDERED: PERCOCET 5MG/325MG TAB PO PRN (10:30)
[2019-05-31] MEDS ORDERED: KETOROLAC 30 MG/ML 1ML VIAL (J1885 PER 15MG) IV PRN (11:00)
[2019-05-31] MEDS ORDERED: fentaNYL 100 MCG/2 ML INJECTION (J3010) IV PRN (11:00)
[2019-05-31] MEDS: KETOROLAC 30 MG/ML 1ML VIAL (J1885 PER 15MG) IV SCH ×2 (12:09→18:00)
[2019-05-31] MEDS ORDERED: ENOXAPARIN 40MG/0.4ML SYRINGE (J1650 PER 10MG) SC SCH (15:00)
[2019-05-31 17:13] LABS: HEMATOCRIT 32.9 % (36.0-47.0); HEMOGLOBIN 10.5 g/dl (12.0-15.5); MEAN CORPUSCULAR HEMOGLOBIN 25.5 pg (27.0-33.0); MEAN CORPUSCULAR HGB CONC 31.9 g/dl (32.0-36.5); MEAN CORPUSCULAR VOLUME 79.9 fl (80.0-96.0); PLATELET COUNT, AUTOMATED 378 10^3/uL (150-450); RED BLOOD COUNT 4.12 10^6/uL (4.00-5.40); WHITE BLOOD COUNT 16.7 10^3/uL (4.0-10.0)
[2019-05-31 17:36] LABS: ALBUMIN 1.9 GM/DL (3.2-5.2); ALT/SGPT 18 U/L (12-78); BILIRUBIN,TOTAL 0.4 MG/DL (0.2-1.0); BLOOD UREA NITROGEN 11 MG/DL (7-18); CARBON DIOXIDE LEVEL 21 MEQ/L (21-32); CHLORIDE LEVEL 107 MEQ/L (98-107); CREATININE FOR GFR 0.69 MG/DL (0.55-1.30); GLOMERULAR FILTRATION RATE > 60.0 (>60); GLUCOSE, FASTING 69 MG/DL (70-100); POTASSIUM SERUM 4.6 MEQ/L (3.5-5.1); SODIUM LEVEL 137 MEQ/L (136-145); TOTAL PROTEIN 5.6 GM/DL (6.4-8.2)
[2019-05-31] MEDS: ENOXAPARIN 40MG/0.4ML SYRINGE (J1650 PER 10MG) SC SCH (17:59)
[2019-05-31] MEDS ORDERED: LACTATED RINGER'S 1000 ML IV ONE (22:15)
[2019-06-01] MEDS: KETOROLAC 30 MG/ML 1ML VIAL (J1885 PER 15MG) IV SCH ×2 (00:16→06:11)
[2019-06-01 02:00] VITALS: BP 140/90
[2019-06-01 06:00] VITALS: BP 125/61
[2019-06-01] MEDS: LEVOTHYROXINE 100MCG TABLET (0.1MG) PO SCH (06:10)
[2019-06-01] MEDS: LEVOTHYROXINE 75MCG TABLET (0.075MG) PO SCH (06:10)
[2019-06-01] MEDS: ENOXAPARIN 40MG/0.4ML SYRINGE (J1650 PER 10MG) SC SCH ×2 (06:11→18:04)
[2019-06-01 06:59] LABS: HEMATOCRIT 27.4 % (36.0-47.0); HEMOGLOBIN 8.9 g/dl (12.0-15.5); MEAN CORPUSCULAR HEMOGLOBIN 26.3 pg (27.0-33.0); MEAN CORPUSCULAR HGB CONC 32.5 g/dl (32.0-36.5); MEAN CORPUSCULAR VOLUME 80.8 fl (80.0-96.0); PLATELET COUNT, AUTOMATED 365 10^3/uL (150-450); RED BLOOD COUNT 3.39 10^6/uL (4.00-5.40)
[2019-06-01] MEDS: PRENATAL VITAMINS CHEWABLE TABLET PO SCH (08:03)
[2019-06-01] MEDS: DOCUSATE SODIUM 100 MG CAP PO SCH ×2 (08:04→21:05)
[2019-06-01] MEDS: SERTRALINE 100 MG TAB PO SCH (08:04)
[2019-06-01] MEDS: PERCOCET 5MG/325MG TAB PO PRN ×2 (08:16→19:17)
[2019-06-01] MEDS: ADVAIR HFA 115/21MCG INHALER INH SCH (08:36)
[2019-06-01 10:40] VITALS: BP 133/75
[2019-06-01] MEDS ORDERED: DOCU100C16 PO (11:00)
[2019-06-01] MEDS ORDERED: PERCOCET PO (11:00)
[2019-06-01] MEDS ORDERED: IBUP80TA PO (11:00)
[2019-06-01 13:59] VITALS: BP 136/91
[2019-06-01] MEDS: IBUPROFEN 800 MG TAB PO SCH ×2 (14:01→21:05)
[2019-06-01 18:03] VITALS: BP 156/70
[2019-06-01 22:00] VITALS: BP 138/77
[2019-06-02 06:00] VITALS: BP 128/75
[2019-06-02] MEDS: LEVOTHYROXINE 75MCG TABLET (0.075MG) PO SCH (06:13)
[2019-06-02] MEDS: ENOXAPARIN 40MG/0.4ML SYRINGE (J1650 PER 10MG) SC SCH (06:13)
[2019-06-02] MEDS: LEVOTHYROXINE 100MCG TABLET (0.1MG) PO SCH (06:13)
[2019-06-02] MEDS: IBUPROFEN 800 MG TAB PO SCH (06:14)
[2019-06-02] MEDS: PERCOCET 5MG/325MG TAB PO PRN (06:15)
[2019-06-02 06:51] LABS: HEMATOCRIT 23.3 % (36.0-47.0); HEMOGLOBIN 7.3 g/dl (12.0-15.5); MEAN CORPUSCULAR HEMOGLOBIN 25.6 pg (27.0-33.0); MEAN CORPUSCULAR HGB CONC 31.3 g/dl (32.0-36.5); MEAN CORPUSCULAR VOLUME 81.8 fl (80.0-96.0); PLATELET COUNT, AUTOMATED 328 10^3/uL (150-450); RED BLOOD COUNT 2.85 10^6/uL (4.00-5.40); WHITE BLOOD COUNT 10.6 10^3/uL (4.0-10.0)
[2019-06-02 07:55] VITALS: BP 128/75
[2019-06-02] MEDS: ADVAIR HFA 115/21MCG INHALER INH SCH (09:00)
--- NOTE | 2019-06-02 09:11 | DSES ---
DATE OF ADMISSION: 05/31/2019 DATE OF DISCHARGE: She is a 38-year-old, 1, at 39 weeks gestation, presents for a primary section. Indication for primary section was multiple medical problems, including Arnold-Chiari malformation. She also is morbidly obese. HOSPITAL COURSE: On 05/31/2019, the patient underwent primary section for a 9 pounds 10 ounce or 4360 gram female infant, scores of 5, 7, and 9. The procedure was without complication. Her course was significant for hemoglobin of 7.3 g/dL. This was not surprising given her preoperative anemia. She had adequate return of bladder and bowel function. She was deemed stable for discharge on postoperative day #2. ADMISSION DIAGNOSES: 1. , 39 weeks. 2. Multiple medical problems. DISCHARGE DIAGNOSIS: Delivered. PROCEDURE: Primary low transverse section. DISPOSITION: The patient will followup with Dr. Carr in 2 weeks. Instructions reviewed.
[2019-06-02] MEDS: DOCUSATE SODIUM 100 MG CAP PO SCH (09:23)
[2019-06-02] MEDS: PRENATAL VITAMINS CHEWABLE TABLET PO SCH (09:23)
[2019-06-02] MEDS: SERTRALINE 100 MG TAB PO SCH (09:23)
== END 2019-06-02 12:05 | disposition home or self-care (01) | DRG 788 ==
LOC: M LDI 05:52 → M OBS 11:26
PROVIDERS: ADMIT Obstetrics & Gynecology; ATTEND Obstetrics & Gynecology
PROC: 10D00Z1 Extraction of Products of Conception, Low, Open Approach (ICD-10-PCS; principal; 2019-05-31 08:30)
DX: O99.214 Obesity complicating childbirth (principal); E66.01 Morbid (severe) obesity due to excess calories; O99.844 Bariatric surgery status complicating childbirth; Z3A.37 37 weeks gestation of pregnancy; Z37.0 Single live birth; O99.284 Endocrine, nutritional and metabolic diseases complicating childbirth; E89.0 Postprocedural hypothyroidism; Q07.00 Arnold-Chiari syndrome without spina bifida or hydrocephalus; G47.33 Obstructive sleep apnea (adult) (pediatric); O99.89 Other specified diseases and conditions complicating pregnancy, childbirth and the puerperium; O99.02 Anemia complicating childbirth; D64.9 Anemia, unspecified

== ENCOUNTER → 2019-08-10 | Outpatient (CLI) | payer OTHER ==
[~2019-08-10] MED LIST changes: -ASPI81TA85 PO; +ASPI81TA86 PO; +D31000TA2 PO; +DOCU100C16 PO; +IBUP80TA PO; +PERCOCET PO; -VITAD1000T PO
[2019-08-10 09:51] LABS: BASO # 0.1 10^3/uL (0.0-0.2); BASO % 0.7 % (0.0-1.0); EOS # 0.3 10^3/uL (0.0-0.5); EOS % 2.5 % (0.0-3.0); HEMATOCRIT 35.7 % (36.0-47.0); HEMOGLOBIN 10.8 g/dl (12.0-15.5); LYMPH # 2.6 10^3/uL (1.5-5.0); LYMPH % 23.9 % (24.0-44.0); MEAN CORPUSCULAR HEMOGLOBIN 24.7 pg (27.0-33.0); MEAN CORPUSCULAR HGB CONC 30.3 g/dl (32.0-36.5); MEAN CORPUSCULAR VOLUME 81.7 fl (80.0-96.0); MONO # 0.4 10^3/uL (0.0-0.8); MONO % 3.3 % (0.0-5.0); NEUTROPHILS # 7.5 10^3/uL (1.5-8.5); NEUTROPHILS % 68.9 % (36.0-66.0); PLATELET COUNT, AUTOMATED 432 10^3/uL (150-450); RED BLOOD COUNT 4.37 10^6/uL (4.00-5.40); WHITE BLOOD COUNT 10.9 10^3/uL (4.0-10.0)
[2019-08-10 10:27] LABS: BLOOD UREA NITROGEN 12 MG/DL (7-18); CALCIUM LEVEL 7.9 MG/DL (8.5-10.1); CARBON DIOXIDE LEVEL 24 MEQ/L (21-32); CHLORIDE LEVEL 107 MEQ/L (98-107); CREATININE FOR GFR 0.94 MG/DL (0.55-1.30); FREE T4 0.86 NG/DL (0.76-1.46); GLOMERULAR FILTRATION RATE > 60.0 (>60); GLUCOSE, FASTING 151 MG/DL (70-100); POTASSIUM SERUM 4.4 MEQ/L (3.5-5.1); SODIUM LEVEL 140 MEQ/L (136-145)
== END ==
LOC: M LAB 09:21
PROVIDERS: ATTEND Physician Assistant
DX: F33.9 Major depressive disorder, recurrent, unspecified (principal)

== ENCOUNTER → 2019-08-14 | Outpatient (CLI) | payer OTHER ==
[~2019-08-14] MED LIST changes: +ASPI81TA85 PO; -ASPI81TA86 PO; -D31000TA2 PO; +ISOVUE-300 61% 50ML VIAL As Ordered ONE; +PROHANCE 279.3MG/ML 5ML VIAL As Ordered ONE; +VITAD1000T PO
--- NOTE | 2019-08-14 10:05 | REP ---
MR ARTHROGRAM OF THE RIGHT SHOULDER: TECHNIQUE: Axial T2 fat sat, coronal oblique T1, T2 fat sat, post arthrogram axial T1 fat sat, proton density, coronal oblique T1 fat sat, T2 sat, sagittal oblique T2 fat sat, ABER T1 fat sat. There is a partial undersurface tear of the distal supraspinatus tendon. There is tendinopathy and possibly a small partial tear of the infraspinatus tendon. There are mild to moderate hypertrophic degenerative changes of the acromioclavicular joint with subchondral marrow edema. The acromion is type 2. Biceps tendon is within the bicipital groove without significant tenosynovitis. There is no Hill-Sachs deformity. Deltoid muscle demonstrates no abnormal signal. Biceps labral complex appears intact. I do not see evidence of a labral tear. Tiny subcortical cysts are seen in the superolateral humeral head. There is a small amount of fluid in the subacromial subdeltoid bursae. IMPRESSION: Partial undersurface tear supraspinatus tendon. Tendinopathy and possibly small partial tear of the infraspinatus tendon. Moderate hypertrophic degenerative change of the acromioclavicular joint with type 2 acromion. No evidence of a labral tear. Small amount of fluid in the subacromial subdeltoid bursae. Electronically Signed by Chandler Abbott MD 08/15/2019 04:05 P
--- NOTE | 2019-08-15 19:53 | REP ---
Reason For Exam/Comment: Right shoulder instability, rule out labral tear Procedure: Right shoulder MRI arthrogram The procedure was performed by MARIA R Grover, under the direct supervision of Dr. Abbott. The benefits and risks including but not limited to pain, infection, bleeding and anaphylaxis were explained to the patient and informed consent was obtained both verbally and written. Directly prior to the start of the procedure, a formal timeout was completed in the procedure room. Technique: The right glenohumeral joint space was localized using fluoroscopic guidance. The skin was prepped and draped in the usual sterile fashion. 5 mL of 1% lidocaine 10 mg/ml was used as a local anesthetic. Using fluoroscopic guidance a 22-gauge spinal needle was inserted and advanced to the right glenohumeral joint space. 1 mL of Isovue 300 was injected to verify needle placement. 12 mL of a solution containing 20 ml of sterile saline and a 0.15 ml of ProHance was injected into the joint. The needle was removed and the patient was taken MRI for post procedural imaging. The patient tolerated the procedure well and there were no immediate complications. 0.2 minutes of fluoroscopy time was utilized for this procedure. Some fluoroscopic images are performed with last image hold technology. These images require no additional radiation. Reviewed by MARIA R Dudley 08/14/2019 09:51 A Electronically Signed by Chandler Abbott MD 08/15/2019 07:44 P
== END ==
LOC: M RADPRO 06:33
PROVIDERS: ATTEND Orthopaedic Surgery
DX: M67.811 Other specified disorders of synovium, right shoulder (principal)
CPT/HCPCS: 23350; 73223; 77002; A9576; Q9967

== ENCOUNTER → 2019-11-12 | Outpatient (CLI) | payer OTHER ==
[~2019-11-12] MED LIST changes: -ASPI81TA85 PO; +ASPI81TA86 PO; +D31000TA2 PO; -ISOVUE-300 61% 50ML VIAL As Ordered ONE; -PROHANCE 279.3MG/ML 5ML VIAL As Ordered ONE; -VITAD1000T PO
--- NOTE | 2019-11-21 13:50 | REP ---
MRI CERVICAL SPINE WITHOUT CONTRAST HISTORY: Syringomyelia. COMPARISON: No comparison MRI study. TECHNIQUE: Axial and sagittal T1 and T2 weighted scans were obtained with and without fat saturation in the usual fashion. MRI FINDINGS: There is a slight reversal of the normal cervical lordosis. Cervical vertebral body heights are preserved. Alignment is otherwise normal. Cortical and medullary bone signal intensity are normal. There is no abnormality at the craniocervical junction. T1 and T2 weighted scan images confirm the presence of an elongate cystic lesion in the central substance of the cord extending from mid C5 distally to the level of the T2 vertebral body. This is consistent with hydromyelia. The fluid collection measures up to 1.6 mm in anteroposterior dimension by 4.5 mm in right to left dimension. There is no other evidence of intramedullary abnormality. Axial and sagittal images at C2-3 demonstrate mild central disc bulging. At C3-C4, there is no abnormality of the disc margin. At C4-C5, there is mild central disc bulging. No cord compression or central canal stenosis is seen. No neural foraminal narrowing is observed. At C5-C6, there is mild disc narrowing and disc bulging, but no focal disc protrusion is seen. No spinal stenosis or foraminal narrowing is seen. The C6-C7 level shows minimal disc bulging. Study is otherwise unremarkable. IMPRESSION: Hydromyelia cavity extending from C5 through T2 as described above. Mild degenerative disc changes. No spinal stenosis or cord compression seen. The patient is apparently status post suboccipital craniotomy for Arnold-Chiari malformation. [facility]
--- NOTE | 2019-11-21 13:53 | REP ---
MRI THORACIC SPINE WITHOUT CONTRAST HISTORY: Arnold-Chiari malformation. Follow up on syringomyelia. No comparison MRI thoracic spine exam. TECHNIQUE: Axial and sagittal T1 and T2 weighed scans were obtained in the usual fashion. MRI FINDINGS: Thoracic vertebral body heights are preserved. Alignment is normal. Cortical and medullary bone signal intensities are intact. No fracture or collapse is seen. There was mild motion artifact. A hydromyelia cavity is seen in the upper thoracic spine extending from the cervical spinal cord. This is seen extending distally on T2 weighted scans to the level of T6. The central canal is visible in the lower thoracic spinal cord but does not appear dilated. The cord overall is not enlarged. Maximum diameter of the thoracic hydromyelia cavity is 2.0 mm anterior to posterior by 3.4 mm right to left, this being at the level of T4. No cord compression is seen. There is a central focal disc protrusion at the T8-9 disc level. This indents the ventral margin of the spinal cord. There is also a T7-8 right paracentral focal disc protrusion which effaces the ventral subarachnoid space but does not appear to compress the cord. No other thoracic disc protrusion is seen. No extraspinal abnormalities observed. IMPRESSION: 1. 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 2. Thoracic disc protrusions at T7-T8 and T8-T9. MTDD
--- NOTE | 2019-11-21 13:58 | REP ---
MRI LUMBAR SPINE WITHOUT CONTRAST HISTORY: Syringomyelia, Arnold-Chiari malformation. No comparison lumbar MRI. TECHNIQUE: Axial and sagittal T1 and T2 weighted scans were obtained in the usual fashion. MRI FINDINGS: There is straightening of the normal lumbar lordosis. Lumbar vertebral body heights are preserved. Alignment is normal. There is no evidence of spondylolysis or spondylolisthesis. The tip of the conus medullaris is normal in position and appearance at L1. There is, however, mild fatty infiltration of the filum terminale seen at the L4 through S1 levels. There is degenerative disc narrowing and decreased signal intensity at L3-4, L5- S1, and to a lesser extent L4-5 indicating degenerative disc disease at these levels. There is minimal diffuse disc bulging at L3-4, L4-5, and L5-S1. There is mild right-sided foraminal narrowing at L5-S1 due to disc bulging and facet hypertrophy. No other foraminal encroachment is seen. Mild facet hypertrophy is present bilaterally at L4-5 and L5-S1. IMPRESSION: Degenerative disc changes at L3-4, L4-5, and L5-S1. Mild right-sided foraminal narrowing at L5-S1 due to disc bulging and facet hypertrophy. MTDD
== END ==
LOC: M RAD 12:39
PROVIDERS: ATTEND Physician Assistant Medical
DX: Q07.00 Arnold-Chiari syndrome without spina bifida or hydrocephalus (principal); Q06.4 Hydromyelia

== ENCOUNTER → 2019-12-18 | Outpatient (CLI) | payer OTHER ==
--- NOTE | 2019-12-19 03:17 | REP ---
INDICATION: PAIN IN RIGHT KNEE COMPARISON: 06/25/2015 TECHNIQUE: AP, lateral, bilateral oblique views of the right knee FINDINGS: Early advanced tricompartmental osteoarthritic degenerative changes are appreciated. Findings include subchondral sclerosis along the tibial plateau, joint space narrowing primarily involving the medial compartment, and marginal osteophytosis. Findings may be slightly progressive when compared to prior examination. No acute fracture or dislocation. No obvious effusion. Lateral view demonstrates prepatellar swelling. IMPRESSION: Advanced tricompartmental osteoarthritic degenerative changes. <Electronically signed by Sachin Alford > 12/19/19 0313
--- NOTE | 2019-12-19 03:29 | REP ---
INDICATION: PAIN IN RIGHT KNEE COMPARISON: None. TECHNIQUE: AP, lateral views of the right tibia/fibula. FINDINGS: Early advanced osteoarthritic degenerative changes at the knee noted. Age-related degenerative changes identified at the ankle. There is no evidence for acute or healed fracture/injury. The surrounding soft tissues are unremarkable. IMPRESSION: . No acute fracture or dislocation. <Electronically signed by Sachin Alford > 12/19/19 0329
== END ==
LOC: M RAD 12:05
PROVIDERS: ATTEND Physician Assistant
DX: M25.561 Pain in right knee (principal)

== ENCOUNTER → 2019-12-31 | Outpatient (CLI) | payer OTHER ==
--- NOTE | 2019-12-31 17:57 | REPVR ---
PROCEDURE INFORMATION: Exam: MR Right Upper Extremity Joint Without Contrast; Wrist Exam date and time: 12/31/2019 5:27 PM Age: 39 years old Clinical indication: Pain and injury or trauma; Fall; Sprain or strain; Wrist; Right; Additional info: Sprain of other part of RT wrist and hand TECHNIQUE: Imaging protocol: MR of the Right upper extremity without contrast. Exam focused on the wrist. COMPARISON: No relevant prior studies available. FINDINGS: There is no evidence of acute fracture or dislocation. Bone marrow signal is normal. There is mild negative ulnar variance. Alignment is otherwise anatomic. The components of the triangular fibrocartilage ligament complex are intact. Evaluation for intercarpal ligament injury is suboptimal without intra-articular contrast. There is no convincing scapholunate or lunotriquetral ligament tear. There is severe tendinopathy and partial-thickness tearing of the abductor pollicis longus and extensor pollicis brevis tendons with a moderate amount of fluid and synovitis in and around the tendon sheaths. There is moderate tendinopathy of the extensor carpi ulnaris tendon with a small amount of synovitis in the tendon sheath. There is a small amount of loculated fluid in the 2nd and 3rd extensor tendon compartments. There is a 1.7 x 0.4 x 1.8 cm multiloculated cystic lesion along the undersurface of the flexor tendons in the carpal tunnel, suggestive of a ganglion or synovial cyst. The visualized portions of the flexor and extensor tendons are otherwise normal in appearance. The median nerve is also normal in appearance. IMPRESSION: 1. Findings compatible with de Quervain tenosynovitis, as described above. 2. Mild extensor carpi ulnaris tendinitis. 3. Additional findings, as above. Electronically signed by: Danish Dupont On 12/31/2019 17:56:47 PM
== END ==
LOC: M RAD 16:10
PROVIDERS: ATTEND Orthopaedic Surgery
DX: S63.8X1A Sprain of other part of right wrist and hand, initial encounter (principal); X58.XXXA Exposure to other specified factors, initial encounter; Y92.89 Other specified places as the place of occurrence of the external cause; Y93.9 Activity, unspecified; Y99.9 Unspecified external cause status

== ENCOUNTER 2020-02-20 08:30 | Outpatient (RCR) | payer OTHER | END 2020-02-21 | LOC: M OT 08:30 | PROVIDERS: ATTEND Orthopaedic Surgery | DX: M65.821 Other synovitis and tenosynovitis, right upper arm (principal) ==

== ENCOUNTER 2020-03-21 10:11 | Outpatient (RCR) | payer OTHER | END 2020-03-23 | LOC: M PT 10:11 | PROVIDERS: ATTEND Orthopaedic Surgery | DX: M65.821 Other synovitis and tenosynovitis, right upper arm (principal); M25.561 Pain in right knee; M25.511 Pain in right shoulder ==

== ENCOUNTER 2020-04-08 09:30 | Outpatient (RCR) | payer OTHER | END 2020-04-20 | LOC: M OT 09:30 | PROVIDERS: ATTEND Orthopaedic Surgery | DX: M25.561 Pain in right knee (principal) ==

== ENCOUNTER → 2020-05-21 | Outpatient (CLI) | payer OTHER ==
[2020-05-21 07:17] LABS: BASO # 0.1 10^3/uL (0.0-0.2); BASO % 0.7 % (0.0-1.0); EOS # 0.3 10^3/uL (0.0-0.5); EOS % 2.9 % (0.0-3.0); HEMATOCRIT 36.1 % (36.0-47.0); HEMOGLOBIN 10.9 g/dl (12.0-15.5); LYMPH % 28.4 % (24.0-44.0); MEAN CORPUSCULAR HEMOGLOBIN 23.7 pg (27.0-33.0); MEAN CORPUSCULAR HGB CONC 30.2 g/dl (32.0-36.5); MEAN CORPUSCULAR VOLUME 78.5 fl (80.0-96.0); MONO # 0.6 10^3/uL (0.0-0.8); MONO % 5.6 % (2.0-8.0); NEUTROPHILS # 6.5 10^3/uL (1.5-8.5); NEUTROPHILS % 61.6 % (36.0-66.0); PLATELET COUNT, AUTOMATED 440 10^3/uL (150-450); WHITE BLOOD COUNT 10.5 10^3/uL (4.0-10.0)
[2020-05-21 07:35] LABS: HEMOGLOBIN A1c 5.9 %
[2020-05-21 07:53] LABS: ALBUMIN 3.1 GM/DL (3.2-5.2); ALT/SGPT 25 U/L (12-78); BILIRUBIN,TOTAL 0.2 MG/DL (0.2-1.0); BLOOD UREA NITROGEN 11 MG/DL (7-18); CARBON DIOXIDE LEVEL 26 MEQ/L (21-32); CHLORIDE LEVEL 107 MEQ/L (98-107); CHOLESTEROL LEVEL 195 MG/DL (<200); CHOLESTEROL RISK RATIO 4.431 (<5); FERRITIN 6 NG/ML (8-252); FREE T4 0.76 NG/DL (0.76-1.46); GLOMERULAR FILTRATION RATE > 60.0 (>60); GLUCOSE, FASTING 94 MG/DL (70-100); HDL CHOLESTEROL 44 MG/DL (>40); IRON (FE) 34 UG/DL (50-170); LDL CHOLESTEROL 123 MG/DL (<100); MAGNESIUM LEVEL 2.3 MG/DL (1.8-2.4); NON-HDL-C 151 MG/DL; PERCENT SATURATION 8.9 % (13.2-45.0); POTASSIUM SERUM 4.4 MEQ/L (3.5-5.1); SODIUM LEVEL 140 MEQ/L (136-145); TOTAL IRON BINDING CAPACITY 383 UG/DL (250-450); TOTAL PROTEIN 6.9 GM/DL (6.4-8.2); TRIGLYCERIDES LEVEL 138 MG/DL (<150)
[2020-05-21 10:47] LABS: TOTAL 25(OH) VITAMIN D 14.4 NG/ML (30.0-100.0); VITAMIN B12 LEVEL 342 PG/ML
[2020-05-21 10:48] LABS: FOLATE 13.6 NG/ML
[2020-05-22 21:07] LABS: ANA (HEP2) Negative (.)
== END ==
LOC: M LAB 06:40
PROVIDERS: ATTEND Physician Assistant
DX: R42 Dizziness and giddiness (principal); Z98.84 Bariatric surgery status

== ENCOUNTER 2020-06-05 14:11 | Outpatient (CLI) | payer OTHER ==
[~2020-06-05] VITALS: Ht 162.6 cm; Wt 175.2 kg
[2020-06-05] MEDS ORDERED: FERRIC CARBOXYMALTOSE INJ 750 MG, VIAL MATE ADAPTER 1 EACH in NS 250 ML IV ONE (14:30)
[2020-06-05 15:33] VITALS: BP 139/65
[2020-06-05] MEDS ORDERED: VITA200031 PO (16:04)
[2020-06-05] MEDS ORDERED: LEVO2TA PO (16:06)
[2020-06-05] MEDS ORDERED: ZOLO100T PO (16:07)
[2020-06-05] MEDS ORDERED: BCP PO (16:10)
[2020-06-05] MEDS ORDERED: BUPR100T3 PO (16:10)
[2020-06-05 16:30] VITALS: BP 120/58
[2020-06-05 17:23] VITALS: BP 134/74
== END 2020-06-05 17:25 | disposition home or self-care (01) ==
LOC: M INFU 14:11
PROVIDERS: ATTEND Physician Assistant
DX: D50.9 Iron deficiency anemia, unspecified (principal)
CPT/HCPCS: 96365; J1439

== ENCOUNTER 2020-06-12 13:32 | Outpatient (CLI) | payer OTHER ==
[~2020-06-12] VITALS: Ht 162.6 cm; Wt 175.2 kg
[~2020-06-12 13:32] MED LIST changes: +BCP PO; +BUPR100T3 PO; +FERRIC CARBOXYMALTOSE INJ 750 MG, VIAL MATE ADAPTER 1 EACH in NS 250 ML IV ONE; +LEVO2TA PO; +VITA200031 PO; +ZOLO100T PO
[2020-06-12 13:51] VITALS: BP 132/69
[2020-06-12 15:18] VITALS: BP 126/74
== END 2020-06-12 15:15 | disposition home or self-care (01) ==
LOC: M INFU 13:32
PROVIDERS: ATTEND Physician Assistant
DX: D50.9 Iron deficiency anemia, unspecified (principal)

== ENCOUNTER → 2020-06-20 | Outpatient (CLI) | payer OTHER ==
[~2020-06-20] MED LIST changes: -FERRIC CARBOXYMALTOSE INJ 750 MG, VIAL MATE ADAPTER 1 EACH in NS 250 ML IV ONE
== END ==
LOC: M SOG 12:35
PROVIDERS: ATTEND Orthopaedic Surgery Sports Medicine
DX: Z00.00 Encounter for general adult medical examination without abnormal findings (principal)

== ENCOUNTER → 2020-09-29 | Outpatient (CLI) | payer OTHER ==
[2020-09-29 11:04] LABS: FREE T4 0.43 NG/DL (0.76-1.46); THYROID STIMULATING HORMONE 71.2 uIU/ML (0.358-3.740); TOTAL T3 78.1 NG/DL (60.0-181.0)
[2020-09-30 13:07] LABS: THRYOGLOBULIN ANTIBODIES (ATA) < 1.0 IU/mL (0.0-0.9); THYROGLOBULIN QUANTITATIVE < 0.1 ng/mL (1.5-38.5)
== END ==
LOC: M LAB 09:16
PROVIDERS: ATTEND Physician Assistant
DX: E03.9 Hypothyroidism, unspecified (principal); Z85.850 Personal history of malignant neoplasm of thyroid

== ENCOUNTER → 2020-10-03 | Outpatient (REF) | LOC: M EMP 13:09 | PROVIDERS: ATTEND Family Medicine | DX: Z11.52 Encounter for screening for COVID-19 (principal) ==

== ENCOUNTER → 2020-10-07 | Outpatient (REF) | LOC: M EMP 13:17 | PROVIDERS: ATTEND Family Medicine | DX: Z11.52 Encounter for screening for COVID-19 (principal) ==

== ENCOUNTER → 2020-11-10 | Outpatient (CLI) | payer OTHER | LOC: M SOG 08:49 | PROVIDERS: ATTEND Orthopaedic Surgery Adult Reconstructive Orthopaedic Surgery | DX: M25.562 Pain in left knee (principal); M25.561 Pain in right knee ==

== ENCOUNTER → 2020-12-15 | Outpatient (CLI) | payer OTHER ==
[~2020-12-15] MED LIST changes: +E-Z-GAS II EFFERVESCENT PACKET (SODIUM BICARB./CITRIC ACID/SIMETHICONE) As Ordered ONE; +E-Z-HD 98% w/w 340GM SUSP BTL As Ordered ONE; +E-Z-PAQUE 96% w/w SUSP 176GM BTL As Ordered ONE
--- NOTE | 2020-12-16 17:37 | REP ---
INDICATION: GERD. COMPARISON: None TECHNIQUE: This procedure was performed by MARIA R Grover, under the direct supervision of Dr. Abbott. Images were reviewed with Dr. Abbott prior to dictation. Because the patient is status post Mariel-en-Y surgery liquid barium was given in the erect position as well as in the prone oblique position in order to perform a single contrast upper GI examination. FINDINGS: The arson investigator film shows no organomegaly or pathological masses. The intestinal gas pattern is unremarkable. The oral and pharyngeal stages of deglutition were unremarkable. Esophageal transport is prompt and efficient and there is no evidence of esophagitis, stricture, or mucosal ring. There is evidence of a small hiatal hernia. Gastroesophageal reflux was observed to below the level of the damien. The remaining stomach sr are normally outlined. There is free flow of contrast through the anastomosis into the small intestine. No stricture or ulcer is visualized. The visualized portion of the proximal small bowel appears normal in course and caliber. IMPRESSION: There is evidence of a small hiatal hernia. Gastroesophageal reflux was observed to below the level of the damien. 0.6 minutes of fluoroscopy time was utilized for this procedure. Some fluoroscopic images are performed with last image hold technology. These images require no additional radiation. <Electronically signed by Vida Acosta > 12/16/20 [id number] <Electronically signed by Chandler Abbott > 12/16/20 [id number]
== END ==
LOC: M RAD 07:29
PROVIDERS: ATTEND Surgery
DX: K21.9 Gastro-esophageal reflux disease without esophagitis (principal); K44.9 Diaphragmatic hernia without obstruction or gangrene; E66.01 Morbid (severe) obesity due to excess calories; Z98.84 Bariatric surgery status

== ENCOUNTER → 2020-12-24 | Outpatient (REF) ==
[~2020-12-24] MED LIST changes: -E-Z-GAS II EFFERVESCENT PACKET (SODIUM BICARB./CITRIC ACID/SIMETHICONE) As Ordered ONE; -E-Z-HD 98% w/w 340GM SUSP BTL As Ordered ONE; -E-Z-PAQUE 96% w/w SUSP 176GM BTL As Ordered ONE
== END ==
LOC: M EMP 11:36
PROVIDERS: ATTEND Family Medicine
DX: Z11.52 Encounter for screening for COVID-19 (principal)

== ENCOUNTER → 2021-01-01 | Outpatient (REF) | payer OTHER | LOC: M LAB REF 16:57 | PROVIDERS: ATTEND Physician Assistant | DX: J06.9 Acute upper respiratory infection, unspecified (principal) ==

== ENCOUNTER → 2021-01-28 | Outpatient (CLI) | payer OTHER ==
[~2021-01-28] MED LIST changes: +BUPIVACAINE HCL 0.5% 30 ML VIAL As Ordered ONE; +ISOVUE-300 61% 50ML VIAL As Ordered ONE; +LIDOCAINE 1% MDV 20ML VIAL As Ordered ONE; +methylPREDNISolone 80MG/ML SUSP 1ML VIAL (J1040) As Ordered ONE
--- NOTE | 2021-01-28 19:46 | REP ---
INDICATION: OSTEOARTHRITIS RT KNEE. COMPARISON: None. TECHNIQUE: The procedure was performed under the direct supervision of Dr. Abbott. The benefits and risks including but not limited to pain infection bleeding and anaphylaxis were explained to the patient and informed consent was obtained. The right tibiofemoral joint space was localized using fluoroscopic guidance. The skin was prepped and draped in a sterile fashion. 1% lidocaine was used as a local anesthetic. Using fluoroscopic guidance, and last image hold technology, a 22 gauge spinal needle was inserted and advanced into the joint. 2 mL of Isovue-300 was injected to verify placement. 6 mL of a solution containing 5 mL of 0.5% Marcaine and 1 mL of a Depo-Medrol 80 mg was injected. The needle was then removed. The patient tolerated the procedure well and there were no immediate complications. Less than 6 seconds of fluoroscopy time was utilized for this procedure. FINDINGS: None IMPRESSION: Fluoro guidance for right knee injection. <Electronically signed by Donovan Desai > 01/28/21 [id number] <Electronically signed by Chandler Abbott > 01/28/21 [id number]
== END ==
LOC: M RADPRO 11:07
PROVIDERS: ATTEND Orthopaedic Surgery Adult Reconstructive Orthopaedic Surgery
DX: M17.11 Unilateral primary osteoarthritis, right knee (principal)
CPT/HCPCS: 20610; 77002; J1040; Q9967

== ENCOUNTER → 2021-02-19 | Outpatient (CLI) | payer OTHER ==
[~2021-02-19] MED LIST changes: -BUPIVACAINE HCL 0.5% 30 ML VIAL As Ordered ONE; -ISOVUE-300 61% 50ML VIAL As Ordered ONE; -LIDOCAINE 1% MDV 20ML VIAL As Ordered ONE; -methylPREDNISolone 80MG/ML SUSP 1ML VIAL (J1040) As Ordered ONE
--- NOTE | 2021-02-21 00:22 | REPVR ---
PROCEDURE INFORMATION: Exam: MR Cervical Spine Without Contrast Exam date and time: 02/19/2021 4:59 PM Age: 40 years old Clinical indication: Condition or disease; Other: Chiari and syrinx; Additional info: Eval chiari and syrinx TECHNIQUE: Imaging protocol: Multiplanar magnetic resonance images of the cervical spine without contrast. COMPARISON: MRI-Spine,Cervical without con 11/12/2019 12:51 PM FINDINGS: Examination is motion limited. There is nonspecific reversal. Vertebral body height and AP alignment is preserved. Negative for discitis/osteomyelitis. No epidural fluid collection. 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 No cord expansion. Suspect previous posterior fossa decompression. Cerebellar tonsils are mildly low lying. There is preservation of normal tonsil morphology. C2-C3: No significant central or foraminal compromise. C3-C4: No significant central or foraminal stenosis. C4-C5: Minimal disc osteophyte complex without significant central or foraminal stenosis. C5-C6: No significant central or foraminal stenosis. C6-C7: No significant central or foraminal stenosis. C7-T1: No significant central or foraminal stenosis. IMPRESSION: 1. Motion limited examination. 2. Cervicothoracic syrinx cavity is not significantly changed from prior study given differences in technique and motion artifact. 3. Central canal is widely patent. Electronically signed by: Steve Fishman On 02/21/2021 00:21:48 AM
--- NOTE | 2021-02-21 00:27 | REPVR ---
PROCEDURE INFORMATION: Exam: MR Thoracic Spine Without Contrast Exam date and time: 02/19/2021 4:59 PM Age: 40 years old Clinical indication: Condition or disease; Other: Chiari and syrinx; Additional info: Eval chiari and syrinx TECHNIQUE: Imaging protocol: Multiplanar magnetic resonance images of the thoracic spine without intravenous contrast. COMPARISON: MRI-Spine,Thoracic without con 11/12/2019 1:30 PM FINDINGS: Motion limited examination. Vertebral body height and AP alignment is preserved. There is syrinx cavity involving the cervical cord extending to the T6 level. This is stable from prior study given differences in technique and motion artifact. No cord expansion. No epidural fluid collection. No evidence for discitis/osteomyelitis. There is mild thoracic spine degenerative disc disease. No significant central canal compromise or cord compression. IMPRESSION: 1. Examination is significantly motion limited. 2. Cervicothoracic syrinx cavity as above, not significantly changed from prior study given differences in technique. 3. Mild degenerative disc disease without significant central canal compromise. Electronically signed by: Steve Fishman On 02/21/2021 00:27:20 AM
== END ==
LOC: M RAD 14:49
PROVIDERS: ATTEND Neurological Surgery
DX: G95.0 Syringomyelia and syringobulbia (principal); G93.5 Compression of brain

== ENCOUNTER → 2021-03-13 | Outpatient (CLI) | payer OTHER | LOC: M LABSMTC 13:45 | PROVIDERS: ATTEND Physician Assistant | DX: Z01.812 Encounter for preprocedural laboratory examination (principal); Z98.84 Bariatric surgery status; G47.33 Obstructive sleep apnea (adult) (pediatric); Z20.822 Contact with and (suspected) exposure to COVID-19 ==

== ENCOUNTER → 2021-03-19 | Outpatient (CLI) | payer OTHER ==
[2021-03-19 10:26] LABS: BASO # 0.1 10^3/uL (0.0-0.2); BASO % 0.7 % (0.0-1.0); EOS # 0.3 10^3/uL (0.0-0.5); EOS % 2.7 % (0.0-3.0); HEMATOCRIT 41.8 % (36.0-47.0); HEMOGLOBIN 13.1 g/dl (12.0-15.5); LYMPH # 2.5 10^3/uL (1.5-5.0); LYMPH % 24.7 % (24.0-44.0); MEAN CORPUSCULAR HEMOGLOBIN 28.1 pg (27.0-33.0); MEAN CORPUSCULAR HGB CONC 31.3 g/dl (32.0-36.5); MEAN CORPUSCULAR VOLUME 89.5 fl (80.0-96.0); MONO # 0.5 10^3/uL (0.0-0.8); MONO % 4.8 % (2.0-8.0); NEUTROPHILS # 6.7 10^3/uL (1.5-8.5); NEUTROPHILS % 66.4 % (36.0-66.0); PLATELET COUNT, AUTOMATED 388 10^3/uL (150-450); RED BLOOD COUNT 4.67 10^6/uL (4.00-5.40); WHITE BLOOD COUNT 10.1 10^3/uL (4.0-10.0)
[2021-03-19 10:53] LABS: PERCENT SATURATION 19.5 % (13.2-45.0)
[2021-03-19 11:12] LABS: HEMOGLOBIN A1c 6.1 %
== END ==
LOC: M LAB 08:18
PROVIDERS: ATTEND Family Medicine
DX: R42 Dizziness and giddiness (principal); R23.1 Pallor

== ENCOUNTER → 2021-04-03 | Outpatient (CLI) | payer OTHER ==
[~2021-04-03] MED LIST changes: +BUPIVACAINE HCL 0.5% 30 ML VIAL As Ordered ONE; +ISOVUE-300 61% 50ML VIAL As Ordered ONE; +methylPREDNISolone 80MG/ML SUSP 1ML VIAL (J1040) As Ordered ONE
== END ==
LOC: M RADPRO 13:04
PROVIDERS: ATTEND Orthopaedic Surgery Adult Reconstructive Orthopaedic Surgery
DX: M17.11 Unilateral primary osteoarthritis, right knee (principal)
CPT/HCPCS: 20610; 77002; J1040; Q9967

== ENCOUNTER → 2021-05-06 | Outpatient (REF) | payer OTHER ==
[~2021-05-06] MED LIST changes: -BUPIVACAINE HCL 0.5% 30 ML VIAL As Ordered ONE; -D31000TA2 PO; -ISOVUE-300 61% 50ML VIAL As Ordered ONE; +VITA100093 PO; -methylPREDNISolone 80MG/ML SUSP 1ML VIAL (J1040) As Ordered ONE
== END ==
LOC: M SFHCWAGY 17:08
PROVIDERS: ATTEND Advanced Practice Midwife
DX: Z12.4 Encounter for screening for malignant neoplasm of cervix (principal)
CPT/HCPCS: 87624; G0123

== ENCOUNTER → 2021-06-09 | Outpatient (REF) ==
[~2021-06-09] MED LIST changes: +BUPR-70 PO; -BUPR100T3 PO
== END ==
LOC: M EMP 09:34
PROVIDERS: ATTEND Family Medicine
DX: Z11.52 Encounter for screening for COVID-19 (principal)

== ENCOUNTER → 2021-06-29 | Outpatient (REF) ==
[2021-06-29 16:40] LABS: RSV AMPLIFICATION NEGATIVE (NEGATIVE)
== END ==
LOC: M EMP 15:43
PROVIDERS: ATTEND Family Medicine
DX: Z11.52 Encounter for screening for COVID-19 (principal)

== ENCOUNTER → 2021-08-05 | Outpatient (CLI) | payer OTHER ==
[2021-08-05 07:21] LABS: BASO # 0.1 10^3/uL (0.0-0.2); BASO % 0.6 % (0.0-1.0); EOS # 0.3 10^3/uL (0.0-0.5); EOS % 3.5 % (0.0-3.0); HEMATOCRIT 39.8 % (36.0-47.0); HEMOGLOBIN 12.5 g/dl (12.0-15.5); LYMPH # 2.4 10^3/uL (1.5-5.0); LYMPH % 25.3 % (24.0-44.0); MEAN CORPUSCULAR HEMOGLOBIN 27.5 pg (27.0-33.0); MEAN CORPUSCULAR HGB CONC 31.4 g/dl (32.0-36.5); MEAN CORPUSCULAR VOLUME 87.5 fl (80.0-96.0); MONO # 0.5 10^3/uL (0.0-0.8); NEUTROPHILS # 6.1 10^3/uL (1.5-8.5); NEUTROPHILS % 65.2 % (36.0-66.0); PLATELET COUNT, AUTOMATED 324 10^3/uL (150-450); RED BLOOD COUNT 4.55 10^6/uL (4.00-5.40); WHITE BLOOD COUNT 9.4 10^3/uL (4.0-10.0)
[2021-08-05 07:57] LABS: ALBUMIN 3.1 GM/DL (3.2-5.2); ALT/SGPT 52 U/L (12-78); BILIRUBIN,TOTAL 0.4 MG/DL (0.2-1.0); BLOOD UREA NITROGEN 14 MG/DL (7-18); CALCIUM LEVEL 8.9 MG/DL (8.5-10.1); CARBON DIOXIDE LEVEL 27 MEQ/L (21-32); CHLORIDE LEVEL 108 MEQ/L (98-107); CHOLESTEROL LEVEL 161 MG/DL (<200); CHOLESTEROL RISK RATIO 4.735 (<5); CREATININE FOR GFR 0.71 MG/DL (0.55-1.30); FREE T4 1.28 NG/DL (0.76-1.46); GLOMERULAR FILTRATION RATE > 60.0 (>60); GLUCOSE, FASTING 124 MG/DL (70-100); HDL CHOLESTEROL 34 MG/DL (>40); IRON (FE) 50 UG/DL (50-170); LDL CHOLESTEROL 86 MG/DL (<100); NON-HDL-C 127 MG/DL; PERCENT SATURATION 14.4 % (13.2-45.0); POTASSIUM SERUM 4.4 MEQ/L (3.5-5.1); SODIUM LEVEL 141 MEQ/L (136-145); TOTAL IRON BINDING CAPACITY 347 UG/DL (250-450); TOTAL PROTEIN 6.9 GM/DL (6.4-8.2); TRIGLYCERIDES LEVEL 204 MG/DL (<150)
[2021-08-05 08:08] LABS: HEMOGLOBIN A1c 6.2 %
[2021-08-05 09:25] LABS: TOTAL 25(OH) VITAMIN D 17.3 NG/ML (30.0-100.0)
== END ==
LOC: M LAB 06:36
PROVIDERS: ATTEND Nurse Practitioner Adult Health
DX: E03.9 Hypothyroidism, unspecified (principal)

== ENCOUNTER → 2021-08-06 | Outpatient (CLI) | payer OTHER | LOC: M SOG 08:30 | PROVIDERS: ATTEND Orthopaedic Surgery Hand Surgery | DX: M65.4 Radial styloid tenosynovitis [de Quervain] (principal) ==

== ENCOUNTER → 2021-08-25 | Outpatient (CLI) | payer OTHER ==
[~2021-08-25] MED LIST changes: +CETI10CH PO; +IBUP1TAB7 PO; +TIZA4CAP6 PO
== END ==
LOC: M LABSMTC 09:06
PROVIDERS: ATTEND Anesthesiology
DX: Z01.818 Encounter for other preprocedural examination (principal); Z11.52 Encounter for screening for COVID-19

== ENCOUNTER 2021-08-28 06:10 | Day surgery (SDC) | payer OTHER ==
[~2021-08-28] VITALS: Ht 162.6 cm; Wt 189.1 kg
[2021-08-28] MEDS ORDERED: LR 1,000 ML IV SCH (06:40)
[2021-08-28] MEDS ORDERED: SODIUM BICARBONATE 8.4% INJ 50MEQ 50 ML VIAL XX ONE (07:00)
[2021-08-28] MEDS ORDERED: LIDOCAINE W/EPINEPHRINE 1% 20ML VIAL XX ONE (07:00)
[2021-08-28] MEDS ORDERED: BACITRACIN OINTMENT 30GM TUBE As Ordered ONE (07:12)
[2021-08-28 08:13] VITALS: BP 158/88
[2021-08-28] MEDS ORDERED: TRAM50TA2 PO (08:19)
== END 2021-08-28 08:27 | disposition home or self-care (01) ==
LOC: M SDC 06:10
PROVIDERS: ATTEND Orthopaedic Surgery Hand Surgery
DX: M65.4 Radial styloid tenosynovitis [de Quervain] (principal); J45.909 Unspecified asthma, uncomplicated; Z85.850 Personal history of malignant neoplasm of thyroid; R59.1 Generalized enlarged lymph nodes; M19.90 Unspecified osteoarthritis, unspecified site; G93.5 Compression of brain; G95.0 Syringomyelia and syringobulbia; Z79.899 Other long term (current) drug therapy; Z98.84 Bariatric surgery status

== ENCOUNTER → 2021-09-11 | Outpatient (CLI) | payer OTHER ==
[~2021-09-11] MED LIST changes: +TRAM50TA2 PO
== END ==
LOC: M LAB 06:32
PROVIDERS: ATTEND Nurse Practitioner Adult Health
DX: R68.84 Jaw pain (principal)

== ENCOUNTER → 2021-10-19 | Outpatient (CLI) | payer OTHER | LOC: M SOG 15:32 | PROVIDERS: ATTEND Orthopaedic Surgery Hand Surgery | DX: M25.511 Pain in right shoulder (principal) ==

== ENCOUNTER 2021-10-27 14:38 | Outpatient (RCR) | payer OTHER ==
[~2021-10-27 14:38] MED LIST changes: +ALBU6.7H6 INH; -PROV108A INH
== END 2021-11-20 ==
LOC: M PT 14:38
PROVIDERS: ATTEND Orthopaedic Surgery Hand Surgery
DX: M25.511 Pain in right shoulder (principal)

== ENCOUNTER → 2022-03-16 | Outpatient (REF) ==
[2022-03-16 13:53] LABS: RSV AMPLIFICATION NEGATIVE (NEGATIVE)
== END ==
LOC: M LABSMTC 11:08
PROVIDERS: ATTEND Family Medicine
DX: Z11.52 Encounter for screening for COVID-19 (principal)

== ENCOUNTER → 2022-06-22 | Outpatient (CLI) | payer OTHER ==
[2022-06-22 18:09] LABS: BASO # 0.1 10^3/uL (0.0-0.2); BASO % 0.6 % (0.0-1.0); EOS # 0.4 10^3/uL (0.0-0.5); EOS % 3.1 % (0.0-3.0); HEMATOCRIT 42.5 % (36.0-47.0); HEMOGLOBIN 13.2 g/dl (12.0-15.5); LYMPH # 3.8 10^3/uL (1.5-5.0); LYMPH % 29.1 % (24.0-44.0); MEAN CORPUSCULAR HEMOGLOBIN 26.5 pg (27.0-33.0); MEAN CORPUSCULAR HGB CONC 31.1 g/dl (32.0-36.5); MEAN CORPUSCULAR VOLUME 85.2 fl (80.0-96.0); MONO # 0.7 10^3/uL (0.0-0.8); MONO % 5.4 % (2.0-8.0); NEUTROPHILS % 60.8 % (36.0-66.0); PLATELET COUNT, AUTOMATED 442 10^3/uL (150-450); RED BLOOD COUNT 4.99 10^6/uL (4.00-5.40); WHITE BLOOD COUNT 13.1 10^3/uL (4.0-10.0)
[2022-06-22 18:27] LABS: ALBUMIN 3.4 G/DL (3.2-5.2); ALKALINE PHOSPHATASE 140 U/L (46-116); ALT/SGPT 28 U/L (7.0-40); AST/SGOT 20 U/L (<34); BILIRUBIN,TOTAL 0.2 MG/DL (0.3-1.2); BLOOD UREA NITROGEN 13 MG/DL (9-23); CALCIUM LEVEL 8.8 MG/DL (8.5-10.1); CARBON DIOXIDE LEVEL 24 MMOL/L (20-31); CHLORIDE LEVEL 105 MMOL/L (98-107); CREATININE FOR GFR 0.82 MG/DL (0.55-1.30); GLOMERULAR FILTRATION RATE > 60.0 (>58); GLUCOSE, FASTING 96 MG/DL (60-100); POTASSIUM SERUM 4.4 MMOL/L (3.5-5.1); SODIUM LEVEL 137 MMOL/L (136-145); TOTAL PROTEIN 8.3 G/DL (5.7-8.2)
[2022-06-22 19:39] LABS: ERYTHROCYTE SEDIMENTATION RATE 97 mm/hr (0-20)
== END ==
LOC: M LAB 16:45
PROVIDERS: ATTEND Nurse Practitioner Adult Health
DX: J45.41 Moderate persistent asthma with (acute) exacerbation (principal)

== ENCOUNTER → 2022-07-06 | Outpatient (REF) | payer OTHER | LOC: M LAB REF 09:23 | PROVIDERS: ATTEND Nurse Practitioner Adult Health | DX: R19.7 Diarrhea, unspecified (principal) ==

== ENCOUNTER → 2022-07-07 | Outpatient (CLI) | payer OTHER ==
[2022-07-07 07:52] LABS: BASO % 0.5 % (0.0-1.0); EOS # 0.3 10^3/uL (0.0-0.5); EOS % 3.5 % (0.0-3.0); HEMATOCRIT 38.3 % (36.0-47.0); HEMOGLOBIN 12.2 g/dl (12.0-15.5); LYMPH # 2.4 10^3/uL (1.5-5.0); LYMPH % 28.4 % (24.0-44.0); MEAN CORPUSCULAR HEMOGLOBIN 26.6 pg (27.0-33.0); MEAN CORPUSCULAR HGB CONC 31.9 g/dl (32.0-36.5); MEAN CORPUSCULAR VOLUME 83.4 fl (80.0-96.0); MONO # 0.5 10^3/uL (0.0-0.8); MONO % 5.3 % (2.0-8.0); NEUTROPHILS # 5.3 10^3/uL (1.5-8.5); NEUTROPHILS % 61.7 % (36.0-66.0); PLATELET COUNT, AUTOMATED 381 10^3/uL (150-450); RED BLOOD COUNT 4.59 10^6/uL (4.00-5.40); WHITE BLOOD COUNT 8.5 10^3/uL (4.0-10.0)
[2022-07-07 08:17] LABS: LIPASE 46 U/L (12-53)
[2022-07-07 08:19] LABS: ALKALINE PHOSPHATASE 133 U/L (46-116); ALT/SGPT 34 U/L (7.0-40); AMYLASE 39 U/L (30-118); AST/SGOT 27 U/L (<34); BILIRUBIN,TOTAL 0.4 MG/DL (0.3-1.2); BLOOD UREA NITROGEN 8 MG/DL (9-23); CALCIUM LEVEL 8.3 MG/DL (8.5-10.1); CARBON DIOXIDE LEVEL 20 MMOL/L (20-31); CHLORIDE LEVEL 108 MMOL/L (98-107); GLOMERULAR FILTRATION RATE > 60.0 (>58); GLUCOSE, FASTING 104 MG/DL (60-100); POTASSIUM SERUM 4.2 MMOL/L (3.5-5.1); SODIUM LEVEL 138 MMOL/L (136-145); TOTAL PROTEIN 7.2 G/DL (5.7-8.2)
[2022-07-07 08:33] LABS: HEPATITIS B SURFACE ANTIGEN NEGATIVE (NEGATIVE)
[2022-07-07 08:51] LABS: ERYTHROCYTE SEDIMENTATION RATE 90 mm/hr (0-20)
[2022-07-07 08:55] LABS: HEPATITIS B CORE ANTIBODY IGM NEGATIVE (NEGATIVE)
[2022-07-07 09:00] LABS: HEPATITIS C VIRUS ABY INDEX 0.1 INDEX (<0.8)
== END ==
LOC: M RAD 07:00
PROVIDERS: ATTEND Family Medicine
DX: R10.11 Right upper quadrant pain (principal)

== ENCOUNTER 2022-08-13 11:08 | Day surgery (SDC) | payer OTHER ==
[~2022-08-13] VITALS: Ht 162.6 cm; Wt 176.1 kg
[~2022-08-13 11:08] MED LIST changes: +AMPICILLIN SOD/SULBACTAM SOD 3 GM in D5W MINI-BAG PLUS 100 ML IV ONE; +BUPR150T12 PO; +BUSP10TA PO; +CelecoXIB 400 MG CAP PO ONE; +DEBL1TAB PO; +INDOCYANINE GREEN 25MG VIAL (IC-GREEN) IV ONE; +KETOROLAC 60MG 2ML VIAL As Ordered ONE; +LEVO150T7 PO; +LIDOCAINE 2% 100MG/5ML SDV (FOR ANES.) As Ordered ONE; +MIDAZOLAM INJ 2MG/2ML VIAL As Ordered ONE; +ONDANSETRON 4MG 2ML VIAL As Ordered ONE; +ROCURONIUM BROMIDE 50MG/5ML VIAL As Ordered ONE; +SUGAMMADEX SODIUM 500 MG/5 ML VIAL (BRIDION) As Ordered ONE; +VENTAER INH; +fentaNYL 100 MCG/2 ML INJECTION As Ordered ONE; +propofoL 200 MG/20 ML VIAL As Ordered ONE
[2022-08-13] MEDS ORDERED: INDOCYANINE GREEN 25MG VIAL (IC-GREEN) As Ordered ONE (11:20)
[2022-08-13] MEDS ORDERED: LIDOCAINE 1% SDV 30ML VIAL As Ordered ONE (11:20)
[2022-08-13] MEDS ORDERED: propofoL 200 MG/20 ML VIAL As Ordered ONE (11:44)
[2022-08-13] MEDS ORDERED: ROCURONIUM BROMIDE 50MG/5ML VIAL As Ordered ONE (11:45)
[2022-08-13] MEDS ORDERED: ACETAMINOPHEN 1000MG 100ML IV BAG As Ordered ONE (12:44)
[2022-08-13] MEDS ORDERED: fentaNYL 100 MCG/2 ML INJECTION As Ordered ONE (12:55)
[2022-08-13] MEDS ORDERED: LR 1,000 ML IV SCH (14:30)
[2022-08-13] MEDS ORDERED: fentaNYL 100 MCG/2 ML INJECTION IV PRN (14:30)
[2022-08-13] MEDS ORDERED: ONDANSETRON 4MG 2ML VIAL IV PRN (14:30)
[2022-08-13] MEDS ORDERED: HYDROMORPHONE HCL 0.5 MG/ 0.5 ML SYRINGE IV PRN (14:30)
[2022-08-13] MEDS ORDERED: oxyCODONE 5MG TAB PO PRN (14:30)
[2022-08-13] MEDS ORDERED: NORCO, ANEXSIA 5/325MG TABLET (HYDROcodone/ACETAMINOPHEN) PO PRN ×2 (15:45)
[2022-08-13 16:55] VITALS: BP 129/70; TEMP 98.1; O2SAT 97
[2022-08-13] MEDS ORDERED: KETOROLAC 30 MG/ML 1ML VIAL IV SCH (20:00)
== END 2022-08-13 17:16 | disposition home or self-care (01) ==
LOC: M SDC 11:08
PROVIDERS: ATTEND Surgery
DX: K80.10 Calculus of gallbladder with chronic cholecystitis without obstruction (principal); E66.01 Morbid (severe) obesity due to excess calories; Z68.44 Body mass index [BMI] 60.0-69.9, adult; K66.0 Peritoneal adhesions (postprocedural) (postinfection); Z98.84 Bariatric surgery status; Z80.0 Family history of malignant neoplasm of digestive organs
CPT/HCPCS: 47562; 81025; 88304; J0131; J0295; J1100; J1885; J2250; J2405; J3010; Q9968; S0020; S2900

== ENCOUNTER → 2022-08-23 | Outpatient (REF) | payer OTHER ==
[~2022-08-23] MED LIST changes: -AMPICILLIN SOD/SULBACTAM SOD 3 GM in D5W MINI-BAG PLUS 100 ML IV ONE; -CelecoXIB 400 MG CAP PO ONE; -INDOCYANINE GREEN 25MG VIAL (IC-GREEN) IV ONE; -KETOROLAC 60MG 2ML VIAL As Ordered ONE; -LIDOCAINE 2% 100MG/5ML SDV (FOR ANES.) As Ordered ONE; -MIDAZOLAM INJ 2MG/2ML VIAL As Ordered ONE; -ONDANSETRON 4MG 2ML VIAL As Ordered ONE; -ROCURONIUM BROMIDE 50MG/5ML VIAL As Ordered ONE; -SUGAMMADEX SODIUM 500 MG/5 ML VIAL (BRIDION) As Ordered ONE; -fentaNYL 100 MCG/2 ML INJECTION As Ordered ONE; -propofoL 200 MG/20 ML VIAL As Ordered ONE
[2022-08-23 12:50] LABS: APPEARANCE, URINE HAZY (CLEAR); BACTERIA, URINE AUTO 1+ (NEGATIVE); BILIRUBIN, URINE AUTO NEGATIVE (NEGATIVE); BLOOD, URINE BLOOD 1+ (NEGATIVE); COLOR, URINE YELLOW (YELLOW); GLUCOSE, URINE (UA) AUTO NEGATIVE (NEGATIVE); KETONE, URINE AUTO NEGATIVE (NEGATIVE); LEUKOCYTE ESTERASE, URINE AUTO 1+ (NEGATIVE); MUCUS, URINE SMALL (NEGATIVE); NITRITE, URINE AUTO NEGATIVE (NEGATIVE); PROTEIN, URINE AUTO 2+ mg/dL (NEGATIVE); RBC, URINE AUTO 2 /HPF (0-3); SPECIFIC GRAVITY URINE AUTO 1.015 (1.002-1.035); SQUAMOUS EPITHELIAL CELL UR AU 8 /HPF (0-6); UROBILINOGEN, URINE AUTO 0.2 mg/dL (0.0-2.0); WBC, URINE AUTO 58 /HPF (0-3)
== END ==
LOC: M SMT 12:22
PROVIDERS: ATTEND Urology
DX: N39.0 Urinary tract infection, site not specified (principal)

== ENCOUNTER → 2022-12-13 | Outpatient (REF) | payer OTHER | LOC: M SFHCWAGY 10:20 | PROVIDERS: ATTEND Obstetrics & Gynecology | DX: Z12.4 Encounter for screening for malignant neoplasm of cervix (principal) | CPT/HCPCS: 87624; G0123 ==

== ENCOUNTER → 2023-01-17 | Outpatient (REF) ==
[2023-01-17 09:21] LABS: RSV AMPLIFICATION NEGATIVE (NEGATIVE)
== END ==
LOC: M EMP 07:33
PROVIDERS: ATTEND Family Medicine
DX: Z11.52 Encounter for screening for COVID-19 (principal)

== ENCOUNTER → 2023-07-20 | Outpatient (CLI) | payer OTHER ==
[~2023-07-20] MED LIST changes: +TIZA4CAP3 PO; -TIZA4CAP6 PO
[2023-07-20 14:45] LABS: FREE T4 1.18 NG/DL (0.89-1.76); THYROID STIMULATING HORMONE 4.173 uIU/ML (0.55-4.78)
== END ==
LOC: M PLALAB 11:35
PROVIDERS: ATTEND Nurse Practitioner Adult Health
DX: E03.9 Hypothyroidism, unspecified (principal)

== ENCOUNTER 2023-09-09 10:00 | Day surgery (SDC) | payer OTHER ==
[~2023-09-09] VITALS: Ht 162.6 cm; Wt 167.8 kg
[~2023-09-09 10:00] MED LIST changes: +ERGO500029 PO; +TIRO150C3 PO; +TIRZ7.5P SQ
[2023-09-09] MEDS ORDERED: SILVER NITRATE APPLICATOR (1 = QTY 10) As Ordered ONE (10:11)
[2023-09-09] MEDS ORDERED: LIDOCAINE 1% SDV 30ML VIAL As Ordered ONE (10:12)
[2023-09-09] MEDS ORDERED: fentaNYL 100 MCG/2 ML INJECTION As Ordered ONE (10:15)
[2023-09-09] MEDS ORDERED: KETOROLAC 60MG 2ML VIAL As Ordered ONE (10:15)
[2023-09-09] MEDS ORDERED: propofoL 200 MG/20 ML VIAL As Ordered ONE (10:15)
[2023-09-09] MEDS ORDERED: ONDANSETRON 4MG 2ML VIAL As Ordered ONE (10:15)
[2023-09-09] MEDS ORDERED: LIDOCAINE 2% 100MG/5ML SDV (FOR ANES.) As Ordered ONE (10:15)
[2023-09-09] MEDS ORDERED: MIDAZOLAM INJ 2MG/2ML VIAL As Ordered ONE (10:15)
[2023-09-09] MEDS ORDERED: LEVONORGESTREL 52MG (MIRENA) IUD As Ordered ONE (10:52)
[2023-09-09] MEDS ORDERED: SUCCINYLCHOLINE 100MG/5ML SYRINGE As Ordered ONE (11:02)
[2023-09-09] MEDS ORDERED: ALBUTEROL 6.7GM INHALER **FOR ANES. CART/OMNICELL ONLY As Ordered ONE (11:42)
[2023-09-09 12:55] VITALS: BP 126/72; TEMP 96.9; O2SAT 95
[2023-09-09 17:05] LABS: MEAN CORPUSCULAR HEMOGLOBIN 26.1 pg (27.0-33.0); MEAN CORPUSCULAR HGB CONC 32.4 g/dl (32.0-36.5); MEAN CORPUSCULAR VOLUME 80.6 fl (80.0-96.0); PLATELET COUNT, AUTOMATED 453 10^3/uL (150-450); RED BLOOD COUNT 4.59 10^6/uL (4.00-5.40); WHITE BLOOD COUNT 11.8 10^3/uL (4.0-10.0)
== END 2023-09-09 12:55 | disposition home or self-care (01) ==
LOC: M SDC 10:00
PROVIDERS: ATTEND Obstetrics & Gynecology
DX: N85.8 Other specified noninflammatory disorders of uterus (principal); N84.1 Polyp of cervix uteri; Z30.430 Encounter for insertion of intrauterine contraceptive device; E89.0 Postprocedural hypothyroidism; M54.9 Dorsalgia, unspecified; F32.A Depression, unspecified; F41.9 Anxiety disorder, unspecified; J45.909 Unspecified asthma, uncomplicated; G47.30 Sleep apnea, unspecified; Z85.850 Personal history of malignant neoplasm of thyroid; Z79.899 Other long term (current) drug therapy; Z79.51 Long term (current) use of inhaled steroids; Z79.84 Long term (current) use of oral hypoglycemic drugs; Z79.890 Hormone replacement therapy; Z92.3 Personal history of irradiation
CPT/HCPCS: 58300; 58558; 85027; 86850; 86900; 86901; 88305; J0330; J1100; J1885; J2250; J2405; J3010; J7298

== ENCOUNTER → 2023-11-08 | Outpatient (REF) | LOC: M EMP 09:06 | PROVIDERS: ATTEND Family Medicine | DX: Z11.52 Encounter for screening for COVID-19 (principal) ==

== ENCOUNTER → 2024-04-23 | Outpatient (CLI) | payer OTHER ==
[~2024-04-23] MED LIST changes: -ADV250INH INH; +ADVA1AER9 INH
== END ==
LOC: M SOG 08:23
PROVIDERS: ATTEND Physician Assistant
DX: M25.561 Pain in right knee (principal)

== ENCOUNTER → 2024-05-04 | Outpatient (CLI) | payer OTHER | LOC: M SOG 07:56 | PROVIDERS: ATTEND Physician Assistant | DX: M17.11 Unilateral primary osteoarthritis, right knee (principal) ==

== ENCOUNTER → 2024-09-06 | Outpatient (CLI) | payer OTHER | LOC: M SOG 07:15 | PROVIDERS: ATTEND Neuromusculoskeletal Medicine, Sports Medicine | DX: M19.011 Primary osteoarthritis, right shoulder (principal); M19.012 Primary osteoarthritis, left shoulder ==

== ENCOUNTER → 2024-12-10 | Outpatient (CLI) | payer OTHER ==
[~2024-12-10] MED LIST changes: +E-Z-GAS II EFFERVESCENT PACKET (SODIUM BICARB./CITRIC ACID/SIMETHICONE) As Ordered ONE; +E-Z-HD 98% w/w 340 GM SUSP BTL As Ordered ONE; +E-Z-PAQUE 96% w/w SUSP 176 GM BTL As Ordered ONE
== END ==
LOC: M RAD 08:43
PROVIDERS: ATTEND Surgery
DX: E66.01 Morbid (severe) obesity due to excess calories (principal)